=== PATIENT | male | born 1955 | race African-American/Black ===

== ENCOUNTER 2016-09-09 15:47 | Emergency (ER) | payer MEDICARE ==
[2016-09-09] MEDS ORDERED: PREDNISONE 20 MG TABLET PO ONE (17:48)
--- NOTE | 2016-09-09 18:28 | ER Document Report ---
ED Extremity Problem, Lower - General Chief Complaint: Knee Pain Stated Complaint: LEFT KNEE PAIN Time Seen by Provider: 09/09/16 17:27 Mode of Arrival: Ambulatory Information source: Patient Notes: 11-year-old male presents to ED for left knee pain. He states he has a history of gout in his knee. His knee is swollen. He took 2 ibuprofen 800 last night into this morning. States he has a history of some kidney problems. I informed him he should not be taking ibuprofen at all and especially not 2 800 mg tablets at a time. TRAVEL OUTSIDE OF THE [place] IN LAST 30 DAYS: No - HPI Location: Knee Occurred: Other - During this time a couple days ago Where: Home Onset/Duration: Gradual Quality of pain: Achy, Sharp, Throbbing Severity: Severe Pain Level: 5 Recent injury: No Associated symptoms: Painful ambulation Exacerbated by: Movement, Walking Relieved by: Nothing - Related Data Allergies/Adverse Reactions: No Known Allergies Allergy (Verified 04/01/16 13:17) Past Medical History - General Information source: Patient - Social History Smoking Status: Never Smoker Chew tobacco use (# tins/day): No Frequency of alcohol use: Social Drug Abuse: None Occupation: none Lives with: Spouse/Significant other Family History: Hypertension, Malignancy Patient has suicidal ideation: No Patient has homicidal ideation: No - Past Medical History Cardiac Medical History: Reports: Hx Hypertension Pulmonary Medical History: Reports: Hx Pneumonia EENT Medical History: Reports: None Neurological Medical History: Reports: Hx Cerebrovascular Accident - PT DENIES RESIDUAL WEAKNESS, STROKE IN 2006 Endocrine Medical History: Reports: None Renal/ Medical History: Reports: Other - He states he was told that he had some problems with his kidney and he needs to watch it. Malignancy Medical History: Reports None GI Medical History: Reports: Hx Gastroesophageal Reflux Disease Musculoskeltal Medical History: Reports Hx Arthritis, Reports Hx Gout Skin Medical History: Reports None Psychiatric Medical History: Reports: None Traumatic Medical History: Reports: None Infectious Medical History: Reports: None Surgical Hx: Negative Past Surgical History: Reports: None - Immunizations Immunizations up to date: Yes Hx Diphtheria, Pertussis, Tetanus Vaccination: Yes Review of Systems - Review of Systems Constitutional: No symptoms reported EENT: No symptoms reported Cardiovascular: No symptoms reported Respiratory: No symptoms reported Gastrointestinal: No symptoms reported Genitourinary: No symptoms reported Male Genitourinary: No symptoms reported Musculoskeletal: Joint pain - Left knee pain and swelling Skin: No symptoms reported Hematologic/Lymphatic: No symptoms reported Neurological/Psychological: No symptoms reported Physical Exam - Vital signs Vitals: Temp Pulse Resp BP Pulse Ox 98.0 F 55 L 20 151/83 H 96 09/09/16 16:03 09/09/16 16:03 09/09/16 16:03 09/09/16 16:03 09/09/16 16:03 Interpretation: Normal - General General appearance: Appears well, Alert - HEENT Head: Normocephalic, Atraumatic Eyes: Normal Pupils: PERRL - Respiratory Respiratory status: No respiratory distress Chest status: Nontender Breath sounds: Normal Chest palpation: Normal - Cardiovascular Rhythm: Regular Heart sounds: Normal auscultation Murmur: No - Abdominal Inspection: Normal Distension: No distension Bowel sounds: Normal Tenderness: Nontender Organomegaly: No organomegaly - Back Back: Normal, Nontender - Extremities General upper extremity: Normal inspection, Nontender, Normal color, Normal ROM , Normal temperature General lower extremity: Normal color, Normal temperature. No: Suyapa's sign Knee: Tender, Pain with ROM, Other - Arm swollen area just below the knee patient has a history of gout in this area - Neurological Neuro grossly intact: Yes Cognition: Normal Orientation: AAOx4 Rodney Coma Scale Eye Opening: Spontaneous Rodney Coma Scale Verbal: Oriented Rodney Coma Scale Motor: Obeys Commands Rodney Coma Scale Total: 15 Speech: Normal Motor strength normal: LUE, RUE, LLE, RLE Sensory: Normal - Psychological Associated symptoms: Normal affect, Normal mood - Skin Skin Temperature: Warm Skin Moisture: Dry Skin Color: Normal Course - Re-evaluation Re-evalutation: 09/09/16 19:17 Discussed x-ray with patient and girlfriend. Written report given to girlfriend. Patient was treated with prednisone and given a dispense pack of [place] for the pain. Patient discharged home with prescription for prednisone. Patient will be instructed again not to take ibuprofen if he has kidney problems. Girlfriend says that he does have kidney problems and is been told not to take the ibuprofen. She states that she does not know why the [facility] gave him ibupro[facility] again. - Vital Signs Vital signs: Temp Pulse Resp BP Pulse Ox 98.0 F 75 16 150/89 H 96 09/09/16 19:36 09/09/16 19:36 09/09/16 19:36 09/09/16 19:36 09/09/16 19:36 - Diagnostic Test Radiology reviewed: Image reviewed, Reports reviewed Discharge - Discharge Clinical Impression: Gout of left knee Qualifiers: Gout etiology: unspecified cause Chronicity: unspecified Qualified Code(s): M10.9 - Gout, unspecified Condition: Stable Disposition: HOME, SELF-CARE Additional Instructions: Gout You have been diagnosed as having gout. Gout is a problem caused by an excess of uric acid, a natural chemical found in the body. The cause of this disease is unknown. Gout arthritis occurs when crystals of uric acid form in the joints. The big toe is the most common joint involved, but any joint can become affected. Persons with gout may also form uric acid kidney stones, resulting in flank pain and blood in the urine. Nodules of uric acid may form under the skin. The first step of treatment is to decrease the inflammation in the joint with antiinflammatory medication. Medication to lower the uric acid level in the blood may then be prescribed. This medication should be taken regularly, as any sudden change in dosage may provoke an attack of gout. Some foods, such as red meat, can provoke an attack in some gout sufferers. Call the doctor if new symptoms arise, or if you do not improve. As we discussed if you are having any problems with your kidney you should not be taken ibuprofen. Even if you have no problems with your kidney you should never take more than 800 mg of ibuprofen at one time. He should never take more than 2400 mg of ibuprofen and a 24 hour period. If you take 600 mg you can take it every 6 hours if you take 800 mg you can take it every 8 hours. Please be sure to talk to your doctor before you take any more ibuprofen. STEROID MEDICATION: You have been given a medicine of the cortisone/steroid class. This medication is used to control inflammation or allergy. It is usually only given for a short period of time, until the acute process subsides. There are usually no side effects from short-term use of cortisone-like medications. Some persons feel an increased sense of well-being and are not sleepy at bedtime. Long-term use of cortisone medications is best avoided, unless required for a severe condition. If your condition does not remit, or relapses after the course of corticosteroid medication, you should consult your physician. Oral Narcotic Medication You have been given a prescription for pain control. This medication is a narcotic. It's best taken with food, as nausea can result if taken on an empty stomach. Don't operate machinery or drive within six hours of taking this medication. Do not combine this medicine with alcohol, or with any medication which can cause sedation (such as cold tablets or sleeping pills) unless you get permission from the physician. Narcotics tend to cause constipation. If possible, drink plenty of fluids and eat a diet high in fiber and fruits. FOLLOW-UP CARE: If you have been referred to a physician for follow-up care, call the physician s office for an appointment as you were instructed or within the next two days. If you experience worsening or a significant change in your symptoms, notify the physician immediately or return to the Emergency Department at any time for re-evaluation. Call your primary doctor in the morning and schedule a follow-up appointment within the next 3-5 days Prescriptions: Prednisone [Sterapred Ds] 1 pkg PO ASDIR PRN 12 Days PRN Reason: Forms: Elevated Blood Pressure
--- NOTE | 2016-09-09 18:32 | RADIOLOGY REPORT (SQ) ---
EXAM DESCRIPTION: KNEE LEFT 4 VIEW COMPLETED DATE/TIME: 09/09/2016 6:15 pm REASON FOR STUDY: pain and swelling COMPARISON: None. NUMBER OF VIEWS: Four views. TECHNIQUE: AP, lateral, and both oblique radiographic images acquired of the left knee. LIMITATIONS: None. FINDINGS: MINERALIZATION: Normal. BONES: No acute fracture or dislocation. No worrisome bone lesions. JOINT: There appears to be a small joint effusion. Joint spaces are fairly well maintained. SOFT TISSUES: No soft tissue swelling. No radio-opaque foreign body. OTHER: No other significant finding. IMPRESSION: Small joint effusion. If there is concern for internal derangement, consider MRI. TECHNICAL DOCUMENTATION: JOB ID: [id number] [email or web address]- All Rights Reserved
[2016-09-09] MEDS ORDERED: HYDROCODONE/ACETAMINOPHEN 5-325 MG 6 TAB/DSPK PO PRN (19:07)
[2016-09-09 19:36] VITALS: BP 150/89
== END 2016-09-09 19:37 | disposition home or self-care (01) ==
LOC: ER 15:47
DX: M10.9 Gout, unspecified (principal); M25.562 Pain in left knee; I10 Essential (primary) hypertension; Z86.73 Personal history of transient ischemic attack (TIA), and cerebral infarction without residual deficits; K21.9 Gastro-esophageal reflux disease without esophagitis
CPT/HCPCS: 99283; 73562; A9270 ×2; J7512

== ENCOUNTER 2017-01-27 11:18 | Emergency (ER) | payer MEDICARE, MEDICAID ==
--- NOTE | 2017-01-27 13:06 | RADIOLOGY REPORT (SQ) ---
EXAM DESCRIPTION: KNEE RIGHT 4 VIEWS COMPLETED DATE/TIME: 01/27/2017 12:35 pm REASON FOR STUDY: knee pain COMPARISON: None. NUMBER OF VIEWS: Four views. TECHNIQUE: AP, lateral, and both oblique radiographic images acquired of the right knee. LIMITATIONS: None. FINDINGS: MINERALIZATION: Normal. BONES: No acute fracture or dislocation. No worrisome bone lesions. JOINT: Tiny posterior patellar spurs are present. There is a small joint effusion. SOFT TISSUES: No soft tissue swelling. No radio-opaque foreign body. OTHER: No other significant finding. IMPRESSION: 1. Mild patellofemoral degenerative joint changes. 2. There is a small joint effusion. If there is concern for internal derangement, consider MRI. TECHNICAL DOCUMENTATION: JOB ID: [id number] [employer]- All Rights Reserved
[2017-01-27] MEDS ORDERED: PREDNISONE 20 MG TABLET PO ONE (13:29)
[2017-01-27] MEDS ORDERED: NAPROXEN 250 MG TABLET PO ONE (13:29)
--- NOTE | 2017-01-27 13:33 | ER Document Report ---
HPI - HPI Patient complains to provider of: right knee pain Pain Level: 4 Context: Patient is a 61-year-old male presents emergency department complaining of right knee pain for the past couple of days. Has been using a knee brace which is The swelling down. Otherwise denies any trauma. History of gout. Admits to history of hypertension and hyperlipidemia. Denies any history of diabetes, blood thinners - DERM Skin Color: Normal, [place] Past Medical History - Social History Smoking Status: Never Smoker Frequency of alcohol use: None Drug Abuse: None Family History: Hypertension, Malignancy Patient has suicidal ideation: No Patient has homicidal ideation: No - Past Medical History Cardiac Medical History: Reports: Hx Hypercholesterolemia, Hx Hypertension Pulmonary Medical History: Reports: Hx Pneumonia Neurological Medical History: Reports: Hx Cerebrovascular Accident - PT DENIES RESIDUAL WEAKNESS, STROKE IN 2006 Renal/ Medical History: Denies: Hx Peritoneal Dialysis GI Medical History: Reports: Hx Gastroesophageal Reflux Disease Musculoskeltal Medical History: Reports Hx Arthritis, Reports Hx Gout - Immunizations Immunizations up to date: Yes Hx Diphtheria, Pertussis, Tetanus Vaccination: Yes Vertical Provider Document - CONSTITUTIONAL Agree With Documented VS: Yes Exam Limitations: No Limitations General Appearance: WD/WN, No Apparent Distress Notes: PHYSICAL EXAM GENERAL: Alert, interacts well. EXTREMITIES: Joint effusion noted in the right knee otherwise nontender, moves all 4 extremities spontaneously. No edema, radial and dorsalis pedis pulses 2/4 bilaterally. No cyanosis. NEUROLOGICAL: Alert and oriented x4. Normal speech. PSYCH: Normal affect, normal mood. SKIN: Warm, dry, normal turgor. No rashes or lesions noted. - INFECTION CONTROL TRAVEL OUTSIDE OF THE [place] IN LAST 30 DAYS: No - RESPIRATORY O2 Sat by Pulse Oximetry: 96 Course - Re-evaluation Re-evalutation: 01/27/17 13:33 Patient is a 7-year-old male who is hemodynamic stable, no acute distress afebrile. X-ray shows evidence of degenerative disease of the right knee that is chronic. Small joint effusion. No evidence of acute trauma. Joint aspiration performed at the bedside and synovial fluid sent for analysis. Will treat patient for gout. Otherwise to follow-up with primary care. - Vital Signs Vital signs: Temp Pulse Resp BP Pulse Ox 97.7 F 54 L 21 H 136/83 H 96 01/27/17 11:20 01/27/17 11:20 01/27/17 11:20 01/27/17 11:20 01/27/17 11:20 Procedures - Joint Aspiration Right Knee Consent obtained: Yes Joint aspiration pre-procedure: Sterile PPE donned, Chloraprep applied Anesthetic type: 1% Lidocaine mL's of anesthetic: 2 Needle size: 18 Amount/type of drainage: 15cc yellow clear fluid Number of attempts: 2 Complications: No Discharge - Discharge Clinical Impression: Knee pain Condition: Good Disposition: HOME, SELF-CARE Instructions: Gout ([facility]), Gout Diet ([facility]) Prescriptions: Naproxen 500 mg PO BID 7 Days tablet Prednisone 5 mg PO ASDIR 6 Days tab.ds.pk Referrals: ILSA PARR DO [Primary Care Provider] - Follow up in 1 week
[2017-01-27 13:59] VITALS: BP 126/90
[2017-01-27 14:46] LABS: FLUID TYPE SYNOVIAL
[2017-01-27 14:50] LABS: FLUID APPEARANCE CLOUDY
[2017-01-27 14:51] LABS: FLUID RBC AVERAGE 113.5; FLUID RBC DILUENT USED SALINE; FLUID RBC DILUTION FACTOR 20; FLUID RBC SIDE 1 115; FLUID RBC SIDE 2 112; TOTAL RBC SQUARES COUNTED FLD 75
== END 2017-01-27 14:18 | disposition home or self-care (01) ==
LOC: ER 11:18
PROC: 0S9C3ZX Drainage of Right Knee Joint, Percutaneous Approach, Diagnostic (ICD-10-PCS; principal; 2017-01-27)
DX: M17.11 Unilateral primary osteoarthritis, right knee (principal); M25.561 Pain in right knee; M25.461 Effusion, right knee; I10 Essential (primary) hypertension
CPT/HCPCS: 99283; 89050; 89060; 73564; 10021; A9270 ×2; J7512

== ENCOUNTER 2017-05-29 11:54 | Emergency (ER) | payer MEDICARE, MEDICAID ==
[2017-05-29 12:18] VITALS: BP 116/74
--- NOTE | 2017-05-29 13:14 | RADIOLOGY REPORT (SQ) ---
EXAM DESCRIPTION: KNEE LEFT 4 VIEW COMPLETED DATE/TIME: 05/29/2017 1:00 pm REASON FOR STUDY: pain COMPARISON: None. NUMBER OF VIEWS: Four views. TECHNIQUE: AP, lateral, and both oblique radiographic images acquired of the left knee. LIMITATIONS: None. FINDINGS: MINERALIZATION: Normal. BONES: No acute fracture or dislocation. There is some prominence of the tibial tuberosity with bony sclerosis and cortical irregularity which could be related to previous trauma or old [place]-Schlatte r's disease. Clinical correlation is recommended JOINT: No effusion. SOFT TISSUES: No soft tissue swelling. No radio-opaque foreign body. OTHER: No other significant finding. IMPRESSION: No acute fracture or dislocation. Findings at the level of the tibial tuberosity which could be related to previous trauma or old Lizy-Schlatter's disease. Clinical correlation is recom mended. Other findings as noted above TECHNICAL DOCUMENTATION: JOB ID: [id number] [employer]- All Rights Reserved
--- NOTE | 2017-05-29 14:20 | ER Document Report ---
HPI - HPI Pain Level: 5 Notes: Patient is a 61-year-old male with a history of hypertension who presents to the ED complaining of left popliteal knee pain 3 days with no precipitating injury. Patient states that he has pain with trying to straighten his leg as well as with ambulation and weightbearing. Patient has tried using some ibuprofen with minimal relief. He is still eating and drinking without any difficulties. He has not had any significant past medical history to that left knee. He denies any prolonged immobilization, smoking, IV drug use, cancer, diabetes, previous DVT/PE, or being on any blood thinners. Denies any headache , fever, URI, sore throat, chest pain, palpitations, syncope, cough, shortness of breath, wheeze, dyspnea, abdominal pain, nausea/vomiting/diarrhea, urinary retention, dysuria, hematuria, loss of control of bowel or bladder, numbness/ tingling, saddle anesthesia, muscle paralysis/weakness, or rash. - ROS Systems Reviewed and Negative: Yes All other systems reviewed and negative Past Medical History - Social History Smoking Status: Never Smoker Family History: Hypertension, Malignancy - Past Medical History Cardiac Medical History: Reports: Hx Hypercholesterolemia, Hx Hypertension Pulmonary Medical History: Reports: Hx Pneumonia Neurological Medical History: Reports: Hx Cerebrovascular Accident - PT DENIES RESIDUAL WEAKNESS, STROKE IN 2006 Renal/ Medical History: Denies: Hx Peritoneal Dialysis GI Medical History: Reports: Hx Gastroesophageal Reflux Disease Musculoskeltal Medical History: Reports Hx Arthritis, Reports Hx Gout - Immunizations Immunizations up to date: Yes Hx Diphtheria, Pertussis, Tetanus Vaccination: Yes Vertical Provider Document - CONSTITUTIONAL Agree With Documented VS: Yes Notes: PHYSICAL EXAMINATION: GENERAL: Well-appearing, well-nourished and in no acute distress. LUNGS: Breath sounds clear to auscultation bilaterally and equal. No wheezes rales or rhonchi. HEART: Regular rate and rhythm without murmurs, rubs, gallops. ABDOMEN: Soft, nontender, nondistended abdomen. No guarding, no rebound. No masses appreciated. Normal bowel sounds present. No CVA tenderness bilaterally. No pulsatile mass Musculoskeletal: Lt LE: LROM to flexion to active. FROM to passive. Strength 5+/5. + tenderness to the posterior/popliteal knee. No obvious effusion, swelling, deformity, warmth, or erythema noted. Suyapa neg. Calf soft/non- tender. N/V intact distal. RLE: FROM to passive/active. Strength 5+/5. No focal deficits noted. No bony tenderness of extremities. Back: FROM to passive/active. Strength 5+/5. No vertebral point tenderness, stepoffs, or deformities. No other bony tenderness, erythema, swelling, or ecchymosis. SLR negative b/l. Extremities: Trace pitting edema b/l. Peripheral pulses 2+. Capillary refill less than 2 seconds. NEUROLOGICAL: Normal speech, limping gait. Normal sensory, motor exams. Reflexes 2+ b/l. PSYCH: Normal mood, normal affect. SKIN: Warm, Dry, normal turgor, no rashes or lesions noted. - INFECTION CONTROL TRAVEL OUTSIDE OF THE [place] IN LAST 30 DAYS: No - RESPIRATORY O2 Sat by Pulse Oximetry: 100 Course - Re-evaluation Re-evalutation: 05/29/17 14:19 Knee XR unremarkable for acute pathology (ordered prior to my evaluation) Pt has pain concerning for possible DVT as it is in the popliteal space. Venouse doppler ordered. 05/29/17 15:35 Patient is an afebrile, well-hydrated, 61-year-old male who presents the ED with left posterior knee pain, suspect inflammatory. Vitals are stable. PE is otherwise unremarkable for any neurovascular compress, obvious tendon/ligament rupture, obvious fracture/dislocation, septic joint, DVT. Preliminary report was negative for DVT or any cyst in that area. Crutches will be provided. I will send him home with a prescription for a steroid tapering dose. Recommend conservative measures for symptoms and to schedule an appointment with orthopedics for further evaluation and management. Recheck with your PCM in 3- 5 days as well. Return to the ED with any worsening/concerning symptoms otherwise as reviewed discharge. Patient is in agreement. - Vital Signs Vital signs: Temp Pulse Resp BP Pulse Ox 98.0 F 84 18 116/74 100 05/29/17 12:16 05/29/17 12:16 05/29/17 12:16 05/29/17 12:16 05/29/17 12:16 Discharge - Discharge Clinical Impression: Posterior left knee pain Condition: Stable Disposition: HOME, SELF-CARE Instructions: Use of Crutches ([facility]), Ice & Elevation ([facility]) Additional Instructions: Rest, Ice, Compression, Elevation Use crutches as directed Tylenol/ibuprofen as needed Light stretches daily Strength exercises as able Moist heat and massage may help F/u with your PCP in 3-5 days for a recheck Consider consult(s) with Orthopedics/physical therapy for ongoing/worsening symptoms Return to the ED with any worsening symptoms and/or development of fever, headache, chest pain, palpitations, syncope, shortness of breath, trouble breathing, abdominal pain, n/v/d, muscle weakness/paralysis, numbness/tingling, swelling, redness, or other worsening symptoms that are concerning to you. Prescriptions: RX: Prednisone [Deltasone 10 mg Tablet] 10 mg PO ASDIR PRN #21 tablet PRN Reason: Referrals: [facility] [Provider Group] - Follow up as needed
--- NOTE | 2017-05-30 16:09 | XCELERA REPORT ---
[address] [address] Lower Extremity Venous Evaluation Name: ADITHYA QUIGLEY Age: 61 yrs Gender: Male : 1955 Patient Status: Emergency Patient Location: ER Study Date: 05/29/2017 03:01 PM Procedure: Color flow and duplex imaging of the veins of the left lower extremity as well as the right Common Femoral vein. Reason For Study: left popliteal pain, no injury Ordering Physician: FLAKO CORCORAN PA-C Performed By: Daphne Ma Right Sided Venous Evaluation The right common femoral vein is fully compressible. Spontaneous and phasic flow is present in the right common femoral vein. Left Sided Venous Evaluation Normal vessel filling wall to wall, compression and augmentation as well as Colour flow down to the infrageniculate veins. Interpretation Summary No duplex evidence of DVT or obstruction in the left lower extremity nor in the right Common Femoral vein. : FLAKO CORCORAN PA-C > Dion Clinton
== END 2017-05-29 15:53 | disposition home or self-care (01) ==
LOC: ER 11:54
DX: M25.562 Pain in left knee (principal); I10 Essential (primary) hypertension; E78.00 Pure hypercholesterolemia, unspecified
CPT/HCPCS: 93971; 99284

== ENCOUNTER → 2017-08-01 | Outpatient (CLI) | payer MEDICARE, OTHER ==
--- NOTE | 2017-08-01 13:43 | EKG REPORT ---
SEVERITY:- ABNORMAL ECG - SINUS RHYTHM LVH WITH SECONDARY REPOLARIZATION ABNORMALITY PROLONGED QT INTERVAL : Confirmed by: Andrzej Gregory MD 01-Aug-2017 13:43:38
[2017-08-01 13:57] LABS: ABSOLUTE BASOPHILS # (AUTO) 0.1 10^3/uL (0.0-0.2); ABSOLUTE EOSINOPHILS # (AUTO) 0.1 10^3/uL (0.0-0.6); ABSOLUTE MONOCYTES (AUTO) 1.1 10^3/uL (0.1-1.4); ABSOLUTE NEUT (AUTO) 6.7 10^3/uL (1.7-8.2); BASOPHILS % (AUTO) 0.5 % (0-2); EOSINOPHILS % (AUTO) 1.3 % (0-6); HEMOGLOBIN 13.2 g/dL (13.5-17.0); LYMPHOCYTES % (AUTO) 27.4 % (13-45); MEAN CORPUSCULAR HEMOGLOBIN 28.8 pg (27.0-33.4); MEAN CORPUSCULAR HGB CONC 32.3 g/dL (32.0-36.0); MEAN CORPUSCULAR VOLUME 89 fl (80-97); PLATELET COUNT 298 10^3/uL (150-450); RED BLOOD COUNT 4.58 10^6/uL (4.35-5.55); RED CELL DISTRIBUTION WIDTH 14.2 % (11.5-14.0); SEGMENTED NEUTROPHILS % (AUTO) 60.8 % (42-78); TOTAL CELLS COUNTED % (AUTO) 100 %
[2017-08-01 14:02] LABS: APPEARANCE,URINE CLEAR; BILIRUBIN,URINE NEGATIVE (NEGATIVE); COLOR,URINE YELLOW; GLUCOSE, URINE NEGATIVE (NEGATIVE); KETONES,URINE NEGATIVE (NEGATIVE); LEUKOCYTE ESTERASE,URINE NEGATIVE (NEGATIVE); NITRITE,URINE NEGATIVE (NEGATIVE); PROTEIN,URINE NEGATIVE (NEGATIVE); URINE SPECIFIC GRAVITY 1.019
[2017-08-01 14:25] LABS: ANION GAP 13 (5-19); BLOOD UREA NITROGEN 23 mg/dL (7-20); CALCIUM 9.8 mg/dL (8.4-10.2); CARBON DIOXIDE 33 mmol/L (22-30); CHLORIDE 99 mmol/L (98-107); GLUCOSE 96 mg/dL (75-110); POTASSIUM 3.7 mmol/L (3.6-5.0); SODIUM 144.5 mmol/L (137-145)
== END ==
LOC: OD 13:01
PROVIDERS: ATTEND Orthopaedic Surgery
DX: Z01.818 Encounter for other preprocedural examination (principal); M17.12 Unilateral primary osteoarthritis, left knee
CPT/HCPCS: 36415; 80048; 81001; 85025; 93005; 93010

== ENCOUNTER 2017-08-06 07:10 | Day surgery (SDC) | payer OTHER, MEDICARE, MEDICAID ==
[~2017-08-06 07:10] MED LIST: CEFAZOLIN 2 GM/D5W RTU 2 GM/50 ML RTUPB IV PRN
[2017-08-06] MEDS ORDERED: BUPIVACAINE HCL 0.5 % INJ/PF 30 ML SDV ONE (07:32)
[2017-08-06] MEDS ORDERED: LIDOCAINE 1%/EPINEPHRINE INJ 20 ML VIAL ONE (07:33)
--- NOTE | 2017-08-06 07:34 | RADIOLOGY REPORT (SQ) ---
EXAM DESCRIPTION: CHEST SINGLE VIEW CLINICAL HISTORY: preop COMPARISON: 08/16/2013 FINDINGS: Single frontal view of the chest. The cardiomediastinal silhouette has normal size and contour. No consolidation, pneumothorax, or pleural effusion. No displaced rib fractures identified. Upper abdominal soft tissues are unremarkable. IMPRESSION: 1. No acute pulmonary process identified.
[2017-08-06] MEDS ORDERED: MIDAZOLAM 2 MG/2 ML INJ ONE (09:00)
[2017-08-06] MEDS ORDERED: FENTANYL CITRATE INJ/PF 100 MCG/2 ML AMPUL ONE ×2 (09:01→10:01)
[2017-08-06] MEDS ORDERED: PROPOFOL INJ 200 MG/20 ML VIAL IV ONE (09:01)
[2017-08-06] MEDS ORDERED: KETAMINE HCL INJ 500 MG/10 ML VIAL ONE (09:01)
[2017-08-06] MEDS ORDERED: FENTANYL CITRATE INJ/PF 100 MCG/2 ML AMPUL IV PRN ×3 (09:33)
[2017-08-06] MEDS ORDERED: OXYCODONE-ACETAMINOPHEN 5-325 MG TABLET PO PRN ×2 (09:33)
[2017-08-06] MEDS ORDERED: MEPERIDINE HCL/PF INJ 25 MG/1 ML DISP.SYRIN IV PRN (09:33)
[2017-08-06] MEDS ORDERED: DIPHENHYDRAMINE HCL 50 MG/ML VIAL IV PRN (09:33)
[2017-08-06] MEDS ORDERED: PROMETHAZINE HCL INJ 25 MG/1 ML VIAL IV PRN ×2 (09:33)
--- NOTE | 2017-08-06 09:44 | Operative Report ---
Operative Report DATE OF SURGERY: 08/06/17 PREOPERATIVE DIAGNOSIS: Left medial meniscal tear POSTOPERATIVE DIAGNOSIS: Left medial meniscal tear. Grade 2 chondral malacia medial compartment. Chondrocalcinosis medial compartment. Intact ACL. Lateral meniscal tear. Grade 1 chondral malacia lateral compartment. Chondrocalcinosis lateral compartment. Grade I chondromalacia the patellofemoral compartment OPERATION: Arthroscopic left partial medial and lateral meniscectomy SURGEON: FLAKO MAYO ANESTHESIA: LMAC ESTIMATED BLOOD LOSS: Minimal PROCEDURE: With the patient supine on the operative table left lower extremities prepped and draped in a sterile fashion. The knee is insufflated with a combination of Marcaine, Xylocaine, and epinephrine. Subsequent medial lateral infrapatellar portals are created for the introduction of arthroscope and debridement instrumentation. The joint is examined in a systematic fashion findings as above. Using combination of Viera, mechanical shaver, electric frequency ablation probe a partial medial meniscectomy was performed from approximately 8: 00 to 12:00 on the face of the dial. Similarly a partial lateral meniscectomy performed from proximal to 12:00 to 5:00 in the face of the dial. The joint is again examined in a systematic fashion with no new findings. Instrumentation was removed. Portals reapproximated interrupted nylon. Sterile compressive dressings applied. The patient was returned to PACU in satisfactory condition.
[2017-08-06] MEDS ORDERED: OXYCODONE HCL IR 5 MG TABLET PO PRN (10:48)
[2017-08-06] MEDS ORDERED: ONDANSETRON 4 MG TAB.RAPDIS SL PRN (10:48)
[2017-08-06 12:00] VITALS: BP 133/80
[2017-08-06] MEDS ORDERED: LIDOCAINE 2% INJ-PF (20 MG/ML) 2 ML AMPUL ONE (12:43)
== END 2017-08-06 11:35 | disposition home or self-care (01) ==
LOC: OROUT 07:10
PROVIDERS: ATTEND Orthopaedic Surgery
PROC: 0SBD4ZZ Excision of Left Knee Joint, Percutaneous Endoscopic Approach (ICD-10-PCS; 2017-08-06)
PROC: 0SBD4ZZ Excision of Left Knee Joint, Percutaneous Endoscopic Approach (ICD-10-PCS; principal; 2017-08-06 09:00)
DX: M23.201 Derangement of unspecified lateral meniscus due to old tear or injury, left knee (principal); M23.204 Derangement of unspecified medial meniscus due to old tear or injury, left knee; M67.80 Other specified disorders of synovium and tendon, unspecified site; M22.42 Chondromalacia patellae, left knee; M10.9 Gout, unspecified; I10 Essential (primary) hypertension; Z79.899 Other long term (current) drug therapy; Z86.73 Personal history of transient ischemic attack (TIA), and cerebral infarction without residual deficits
CPT/HCPCS: 36415; 84132; 71045; 29880; J2250; J3490 ×4; J3010; J2704; J0690; 1400

== ENCOUNTER 2017-08-13 10:17 | Emergency (ER) | payer MEDICARE, MEDICAID ==
[2017-08-13 10:25] VITALS: BP 108/71
[2017-08-13] MEDS ORDERED: KETOROLAC TROMETHAMINE INJ/PF 30 MG/1 ML SDV IM ONE (10:52)
--- NOTE | 2017-08-13 11:14 | ER Document Report ---
ED Extremity Problem, Lower - General Chief Complaint: Foot Pain Stated Complaint: RIGHT LEG PAIN Time Seen by Provider: 08/13/17 10:51 Mode of Arrival: Ambulatory Information source: Patient TRAVEL OUTSIDE OF THE [place] IN LAST 30 DAYS: No - HPI Patient complains to provider of: Pain Location: Foot Notes: Patient is here with complaints of right heel pain. He states that the pain is been present for the last few days. Week ago he had a scope done to his left knee he states he has been putting most of his weight on his right foot when he has been walking and thinks he may have strained his heel. He denies any traumatic injury. No fever. No redness. No numbness, tingling, weakness. States that his left knee feels great. No redness or swelling to the knee. No chest pain or shortness of breath. No abdominal pain. No nausea, vomiting, diarrhea. No other complaints at this time. Pain is worse with walking as well as with touching the heel. - Related Data Allergies/Adverse Reactions: No Known Allergies Allergy (Verified 08/13/17 10:20) Past Medical History - Social History Smoking Status: Never Smoker Chew tobacco use (# tins/day): No Frequency of alcohol use: None Drug Abuse: None Family History: Hypertension, Malignancy Patient has suicidal ideation: No Patient has homicidal ideation: No - Past Medical History Cardiac Medical History: Reports: Hx Hypercholesterolemia, Hx Hypertension Denies: Hx Coronary Artery Disease, Hx Heart Attack Pulmonary Medical History: Denies: Hx Asthma, Hx Bronchitis, Hx COPD, Hx Pneumonia Neurological Medical History: Denies: Hx Cerebrovascular Accident, Hx Seizures Renal/ Medical History: Denies: Hx Peritoneal Dialysis GI Medical History: Reports: Hx Gastroesophageal Reflux Disease Musculoskeltal Medical History: Reports Hx Arthritis - KOSTA ANKLES/KNEES, Reports Hx Gout Past Surgical History: Reports: Hx Orthopedic Surgery - L knee - Immunizations Immunizations up to date: Yes Hx Diphtheria, Pertussis, Tetanus Vaccination: Yes Review of Systems - Review of Systems -: Yes All other systems reviewed and negative Physical Exam - Vital signs Vitals: Temp Pulse Resp BP Pulse Ox 97.9 F 51 L 17 108/71 99 08/13/17 10:24 08/13/17 10:24 08/13/17 10:24 08/13/17 10:24 08/13/17 10:24 - Notes Notes: GENERAL: alert, cooperative, nontoxic, no distress. HEAD: normocephalic, atraumatic EYES: conjunctiva pink without discharge, no external redness or swelling. EARS: no external swelling, no external redness NOSE: atraumatic, no external swelling MOUTH/THROAT: mucous membranes moist and pink NECK: soft, supple, full range of motion, no meningismus. CHEST: no distress, lungs clear and equal throughout. No wheezing, rales, rhonchi. CARDIAC: regular rate and rhythm, no murmur, normal capillary refill, normal pulses. BACK: full range of motion, no CVA tenderness. EXTREMITIES: full range of motion of all extremities. No redness, no swelling. Tenderness to palpation of the posterior right calcaneus the insertion of the Achilles. No redness or swelling. Achilles is intact with a normal Esparza's test. Remainder the foot exam is unremarkable with no redness or tenderness. Normal pulse and sensation. No calf swelling or tenderness. Left knee exam shows sutures in place. No redness, no drainage. Full range of motion. No tenderness. NEURO: alert and oriented 3, no focal deficits, full range of motion of all extremities. PYSCH: appropriate mood, affect. Patient is cooperative. SKIN: pink, warm, dry, no rash. Course - Re-evaluation Re-evalutation: 08/13/17 12:15 The patient is nontoxic appearing with stable vitals. Is here with complaints of right heel pain. Tenderness right at the insertion of the Achilles tendon. Patient had surgery on his left knee about a week ago and states that he has been walking different on his right foot. His exam is consistent with Achilles tendinitis. There is no redness, swelling or fever and no signs of infection. X-ray shows no acute abnormalities. Patient would likely benefit from an anti- inflammatory medication. He tells me that he cannot take NSAIDs because they have been affecting his kidney function. I certainly do not want to place the patient on steroids since he recently had surgery as this could potentially delay his healing and put him at risk for infection. This point I recommended that he rest and ice the Achilles area. Follow-up with his orthopedist if his pain does not improve within the next week as it could potentially do a steroid injection in this area to give some pain relief without giving him systemic steroids. He was instructed to follow-up sooner if he develops worsening pain, fever, redness, numbness, tingling, weakness or any further concerns. Patient has pain medication that he was prescribed for his knee surgery that he can take as needed for pain. The patient's emergency department workup and current diagnosis were explained to the patient and or family. Follow-up instructions were provided. Medications if prescribed were discussed. Instructions for when to return to the emergency department including specific worrisome symptoms were discussed with the patient and/or family. - Vital Signs Vital signs: Temp Pulse Resp BP Pulse Ox 97.9 F 51 L 17 108/71 99 08/13/17 10:24 08/13/17 10:24 08/13/17 10:24 08/13/17 10:24 08/13/17 10:24 - Diagnostic Test Radiology reviewed: Image reviewed, Reports reviewed - Foot x-ray with no acute findings. Discharge - Discharge Clinical Impression: Achilles tendonitis Qualifiers: Laterality: right Qualified Code(s): M76.61 - Achilles tendinitis, right leg Condition: Stable Disposition: HOME, SELF-CARE Instructions: Tendonitis ([facility]) Additional Instructions: Rest and ice your foot. Follow-up with your orthopedist at next available appointment if your pain persists. Follow-up sooner for increasing pain, fever , redness, numbness, tingling, weakness, any further concerns. Forms: Smoking Cessation Education Referrals: ILSA PARR DO [Primary Care Provider] - Follow up as needed
--- NOTE | 2017-08-13 11:43 | RADIOLOGY REPORT (SQ) ---
EXAM DESCRIPTION: FOOT RIGHT COMPLETE COMPLETED DATE/TIME: 08/13/2017 11:29 am REASON FOR STUDY: heel pain COMPARISON: None. NUMBER OF VIEWS: Three views. TECHNIQUE: AP, lateral and oblique radiographic images acquired of the right foot. LIMITATIONS: None. FINDINGS: MINERALIZATION: Normal. BONES: No acute fracture or dislocation. No worrisome bone lesions. Small dorsal calcaneal spur. N o ossified plantar calcaneal spur is seen. JOINTS: Mild joint space narrowing at the 1st tarsometatarsal joint. SOFT TISSUES: No soft tissue swelling. No foreign body. Atherosclerotic arterial vascular calcifica tions are present OTHER: No other significant finding. IMPRESSION: No plain film findings to explain history of heel pain TECHNICAL DOCUMENTATION: JOB ID: [id number] [employer]- All Rights Reserved Reading location - IP/workstation name: [email or web address]
== END 2017-08-13 12:30 | disposition home or self-care (01) ==
LOC: ER 10:17
DX: M76.61 Achilles tendinitis, right leg (principal); M79.671 Pain in right foot; I10 Essential (primary) hypertension; Z98.890 Other specified postprocedural states
CPT/HCPCS: 99283; 96372; 73630; J1885

== ENCOUNTER 2017-10-20 12:47 | Emergency (ER) | payer MEDICAID, MEDICARE ==
[2017-10-20 12:54] VITALS: BP 140/73
[2017-10-20] MEDS ORDERED: OXYCODONE HCL IR 5 MG TABLET PO ONE (13:42)
[2017-10-20] MEDS ORDERED: KETOROLAC TROMETHAMINE INJ/PF 30 MG/1 ML SDV IM ONE (13:42)
--- NOTE | 2017-10-20 13:45 | ER Document Report ---
HPI - HPI Pain Level: 4 Notes: Patient is a 62-year-old male with a history of osteoarthritis who presents to the ED complaining of right knee pain 3 days, but has had knee pain over the last couple weeks. Patient states that he had a surgery a little while ago on his left knee and was favoring his right knee quite a bit. Patient states that he has trouble bearing weight because of the pain and with flexion. He has not noticed any swelling or redness. Patient states that the pain is on the medial side and does not radiate. He denies any drug allergies. Patient has not been in to see his specialist yet. Patient does have a history of hypertension. Denies any headache, fever, URI, sore throat, chest pain, palpitations, syncope , cough, shortness of breath, wheeze, dyspnea, abdominal pain, nausea/vomiting/ diarrhea, urinary retention, dysuria, hematuria, back pain, loss of control of bowel or bladder, numbness/tingling, saddle anesthesia, muscle paralysis/ weakness, or rash. - ROS Systems Reviewed and Negative: Yes All other systems reviewed and negative - REPRODUCTIVE Reproductive: DENIES: : - MUSCULOSKELETAL Musculoskeletal: REPORTS: Extremity pain - R knee Past Medical History - Social History Smoking Status: Unknown if Ever Smoked Family History: Hypertension, Malignancy Patient has suicidal ideation: No Patient has homicidal ideation: No - Past Medical History Cardiac Medical History: Reports: Hx Hypercholesterolemia, Hx Hypertension Denies: Hx Coronary Artery Disease, Hx Heart Attack Pulmonary Medical History: Denies: Hx Asthma, Hx Bronchitis, Hx COPD, Hx Pneumonia Neurological Medical History: Denies: Hx Cerebrovascular Accident, Hx Seizures Renal/ Medical History: Denies: Hx Peritoneal Dialysis GI Medical History: Reports: Hx Gastroesophageal Reflux Disease Musculoskeltal Medical History: Reports Hx Arthritis - KOSTA ANKLES/KNEES, Reports Hx Gout Past Surgical History: Reports: Hx Orthopedic Surgery - L knee - Immunizations Immunizations up to date: Yes Hx Diphtheria, Pertussis, Tetanus Vaccination: Yes Vertical Provider Document - CONSTITUTIONAL Agree With Documented VS: Yes Notes: PHYSICAL EXAMINATION: GENERAL: Well-appearing, well-nourished and in no acute distress. LUNGS: Breath sounds clear to auscultation bilaterally and equal. No wheezes rales or rhonchi. HEART: Regular rate and rhythm without murmurs, rubs, gallops. Musculoskeletal: Rt knee: No obvious swelling, ecchymosis, effusion, or deformity aside from seeing osteoarthritic changes. LOM to passive/active with flexion. Strength 5+/5. N/V intact distal. + tenderness to the medial joint line. Pt would not allow for adequate testing of the knee. No calf tenderness. Extremities: No cyanosis, clubbing, or edema b/l. Peripheral pulses 2+. Capillary refill less than 3 seconds. [place] neg b/l. NEUROLOGICAL: Normal speech, normal gait. Normal sensory, motor exams PSYCH: Normal mood, normal affect. SKIN: Warm, Dry, normal turgor, no rashes or lesions noted. - INFECTION CONTROL TRAVEL OUTSIDE OF THE [place] IN LAST 30 DAYS: No Course - Re-evaluation Re-evalutation: 10/20/17 15:03 Patient is an afebrile, well-hydrated, 62-year-old male who presents to the ED with right knee pain with a mild effusion present. Vitals are acceptable without significant tachycardia, tachypnea, or hypoxia. PE is otherwise unremarkable for any neurovascular compress, obvious tendon/ligament rupture, obvious fracture/dislocation, septic joint. See x-ray result. Patient is nontoxic-appearing and is tolerating p.o. without difficulties. No other labs or imaging warranted at this time based on H&P. Toradol given IM today. I will send him home with a steroid taper as well as Voltaren gel. Patient was requesting steroid as it worked well for his knee before. Recheck with your PCM in 3-5 days. Call and schedule an appoint with orthopedics. Return to the ED with any worsening/concerning symptoms otherwise as reviewed discharge. Patient is in agreement. - Vital Signs Vital signs: Temp Pulse Resp BP Pulse Ox 98.4 F 64 18 140/73 H 10/20/17 12:53 10/20/17 12:53 10/20/17 12:53 10/20/17 12:53 Discharge - Discharge Clinical Impression: Right knee pain Qualifiers: Chronicity: acute Qualified Code(s): M25.561 - Pain in right knee Condition: Stable Disposition: HOME, SELF-CARE Instructions: Ice & Elevation ([facility]) Additional Instructions: Rest, Ice, Compression, Elevation Use crutches as directed Tylenol/ibuprofen as needed Light stretches daily Strength exercises as able Moist heat and massage may help F/u with your PCP in 3-5 days for a recheck Call orthopedics to schedule an appointment for further evaluation and management Return to the ED with any worsening symptoms and/or development of fever, headache, chest pain, palpitations, syncope, shortness of breath, trouble breathing, abdominal pain, n/v/d, muscle weakness/paralysis, numbness/tingling, swelling, redness, or other worsening symptoms that are concerning to you. Prescriptions: Diclofenac Sodium [Voltaren] 4 gm TP QID PRN #100 gel..gm. PRN Reason: Prednisone 20 mg PO ASDIR #18 tablet Forms: Elevated Blood Pressure Referrals: ILSA PARR DO [Primary Care Provider] - Follow up in 3-5 days [facility] [Provider Group] - Follow up in 3-5 days
--- NOTE | 2017-10-20 15:00 | RADIOLOGY REPORT (SQ) ---
EXAM DESCRIPTION: KNEE RIGHT 4 VIEWS COMPLETED DATE/TIME: 10/20/2017 2:04 pm REASON FOR STUDY: rt knee pain COMPARISON: Right knee four views 01/27/2017 NUMBER OF VIEWS: Four views. TECHNIQUE: AP, lateral, and both oblique radiographic images acquired of the right knee. LIMITATIONS: None. FINDINGS: MINERALIZATION: Normal. BONES: No acute fracture or dislocation. Mild bony spurring at the quadriceps and patellar tendon at tachments to the patella, and along the anterior tibial tubercle. JOINT: Moderate suprapatellar knee joint effusion. SOFT TISSUES: No soft tissue swelling. No radio-opaque foreign body. OTHER: No other significant finding. IMPRESSION: Moderate suprapatellar knee joint effusion. No acute fracture or malalignment TECHNICAL DOCUMENTATION: JOB ID: [id number] [employer]- All Rights Reserved Reading location - IP/workstation name: [email or web address]
== END 2017-10-20 15:09 | disposition home or self-care (01) ==
LOC: ER 12:47
DX: M25.561 Pain in right knee (principal); M25.461 Effusion, right knee; I10 Essential (primary) hypertension; Z98.890 Other specified postprocedural states
CPT/HCPCS: 99283; 96372; 73564; J1885; A9270

== ENCOUNTER 2018-01-26 11:25 | Emergency (ER) | payer OTHER, MEDICARE ==
--- NOTE | 2018-01-26 11:36 | ER Document Report ---
ED Medical Screen (RME) - General Chief Complaint: Arm Problem Stated Complaint: ARM SWELLING Time Seen by Provider: 01/26/18 11:35 TRAVEL OUTSIDE OF THE [place] IN LAST 30 DAYS: No - HPI Notes: 01/26/18 11:35 Right arm swelling - Related Data Allergies/Adverse Reactions: No Known Allergies Allergy (Verified 08/13/17 10:20) Past Medical History - Social History Frequency of alcohol use: Occasional Drug Abuse: None - Past Medical History Cardiac Medical History: Reports: Hx Hypercholesterolemia, Hx Hypertension Denies: Hx Coronary Artery Disease, Hx Heart Attack Pulmonary Medical History: Denies: Hx Asthma, Hx Bronchitis, Hx COPD, Hx Pneumonia Neurological Medical History: Denies: Hx Cerebrovascular Accident, Hx Seizures Renal/ Medical History: Denies: Hx Peritoneal Dialysis GI Medical History: Reports: Hx Gastroesophageal Reflux Disease Musculoskeltal Medical History: Reports Hx Arthritis - KOSTA ANKLES/KNEES, Reports Hx Gout Past Surgical History: Reports: Hx Orthopedic Surgery - L knee - Immunizations Immunizations up to date: Yes Hx Diphtheria, Pertussis, Tetanus Vaccination: Yes History of Influenza Vaccine for 01/2017 - 06/2017 Season: Yes Influenza Administration Date for 01/2017 - 06/2017 Season: 02/19/17 Review of Systems - Review of Systems Musculoskeletal: Other - Arm swelling Physical Exam - Vital signs Vitals: Temp Pulse Resp BP Pulse Ox 98.0 F 64 18 153/104 H 98 01/26/18 11:29 01/26/18 11:29 01/26/18 11:29 01/26/18 11:29 01/26/18 11:29 - Respiratory Respiratory status: No respiratory distress Chest status: Nontender Breath sounds: Normal Chest palpation: Normal Course - Vital Signs Vital signs: Temp Pulse Resp BP Pulse Ox 98.0 F 64 18 153/104 H 98 01/26/18 11:29 01/26/18 11:29 01/26/18 11:29 01/26/18 11:29 01/26/18 11:29 Doctor's Discharge - Discharge Referrals: ILSA PARR DO [Primary Care Provider] - Follow up as needed
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
[2018-01-26] MEDS ORDERED: HYDROCODONE/ACETAMINOPHEN 5-325 MG TABLET PO ONE (11:59)
--- NOTE | 2018-01-26 12:40 | RADIOLOGY REPORT (SQ) ---
EXAM DESCRIPTION: FOREARM RIGHT COMPLETED DATE/TIME: 01/26/2018 12:21 pm REASON FOR STUDY: RIGHT WRIST AND ELBOW PAIN COMPARISON: None. NUMBER OF VIEWS: Two views. TECHNIQUE: Two radiographic images acquired of the right forearm, including elbow and wrist in at le ast one projection. LIMITATIONS: None. FINDINGS: MINERALIZATION: Normal. BONES: No acute fracture. No worrisome bone lesions. SOFT TISSUES: No obvious swelling or foreign body. OTHER: No other significant finding. IMPRESSION: NEGATIVE STUDY OF THE RIGHT FOREARM. NO RADIOGRAPHIC EVIDENCE OF ACUTE INJURY. TECHNICAL DOCUMENTATION: JOB ID: [id number] [employer] All Rights Reserved Reading location - IP/workstation name: [email or web address]
--- NOTE | 2018-01-26 12:45 | RADIOLOGY REPORT (SQ) ---
EXAM DESCRIPTION: SHOULDER RIGHT 2 OR MORE VIEWS COMPLETED DATE/TIME: 01/26/2018 12:21 pm REASON FOR STUDY: right shoulder pain COMPARISON: None. NUMBER OF VIEWS: Three views. TECHNIQUE: Internal rotation, external rotation, and Y view images acquired of the right shoulder. LIMITATIONS: None. FINDINGS: MINERALIZATION: Normal. BONES: No acute fracture or dislocation. No worrisome bone lesions. JOINTS: No dislocation. VISUALIZED LUNGS AND RIBS: No pneumothorax. No rib fracture. SOFT TISSUES: No radiopaque foreign body. OTHER: Moderate AC joint and glenohumeral joint arthropathy. IMPRESSION: NO RADIOGRAPHIC EVIDENCE OF ACUTE INJURY. TECHNICAL DOCUMENTATION: JOB ID: [id number] [employer]- All Rights Reserved Reading location - IP/workstation name: [email or web address]
[2018-01-26 13:35] LABS: ANION GAP 10 (5-19); BLOOD UREA NITROGEN 18 mg/dL (7-20); CARBON DIOXIDE 30 mmol/L (22-30); CHLORIDE 102 mmol/L (98-107); GLUCOSE 81 mg/dL (75-110); POTASSIUM 3.4 mmol/L (3.6-5.0); URIC ACID 9.3 mg/dL (3.5-8.5)
[2018-01-26] MEDS ORDERED: COLCHICINE 0.6 MG TABLET PO ONE (13:43)
[2018-01-26] MEDS ORDERED: HYDROCODONE/ACETAMINOPHEN 5-325 MG (6 TAB/ER DISP) PO PRN (13:50)
[2018-01-26 14:29] VITALS: BP 158/115
== END 2018-01-26 15:10 | disposition home or self-care (01) ==
LOC: ER 11:25
DX: M10.9 Gout, unspecified (principal); T50.906A Underdosing of unspecified drugs, medicaments and biological substances, initial encounter; Z91.128 Patient's intentional underdosing of medication regimen for other reason; Z91.14 Patient's other noncompliance with medication regimen; M19.011 Primary osteoarthritis, right shoulder; N28.9 Disorder of kidney and ureter, unspecified; M25.531 Pain in right wrist; M79.601 Pain in right arm; M25.519 Pain in unspecified shoulder; I10 Essential (primary) hypertension; Z87.891 Personal history of nicotine dependence; Z79.899 Other long term (current) drug therapy
CPT/HCPCS: 36415; 80048; 84550; 99283

== ENCOUNTER 2018-03-14 06:25 | Emergency (ER) | payer OTHER, MEDICARE ==
[2018-03-14 06:38] VITALS: BP 153/97
--- NOTE | 2018-03-14 07:36 | ER Document Report ---
HPI - HPI Time Seen by Provider: 03/14/18 07:11 Pain Level: 5 Notes: Patient is a 62-year-old male with a history of hypertension, CKD stage III, gout who presents to the ED complaining of another gout flareup to his right arm x1 week. Patient was here in January for the same pain. Patient states that he was treated for gout at that time which resolved the symptoms for "a while." Patient denies any injury. He has not had any recent illness. The pain does not radiate. Movements make his pain worse or light touch to the area. He is otherwise eating and drinking without any difficulties. He is urinating normally. Patient states that he has had gout flareups in other joints of his body that is the same pain as he is experiencing at this time. He has no significant pulmonary medical history. No other concerns or complaints. Denies any headache, fever, neck pain, changes in vision/speech/ mentation/hearing, URI, sore throat, chest pain, palpitations, syncope, cough, shortness of breath, wheeze, dyspnea, abdominal pain, nausea/vomiting/diarrhea, urinary retention, dysuria, hematuria, loss of control of bowel or bladder, numbness/tingling, muscle paralysis/weakness, or rash. - ROS Systems Reviewed and Negative: Yes All other systems reviewed and negative - REPRODUCTIVE Reproductive: DENIES: : Past Medical History - Social History Smoking Status: Unknown if Ever Smoked Family History: Hypertension, Malignancy - Past Medical History Cardiac Medical History: Reports: Hx Hypercholesterolemia, Hx Hypertension Denies: Hx Coronary Artery Disease, Hx Heart Attack Pulmonary Medical History: Denies: Hx Asthma, Hx Bronchitis, Hx COPD, Hx Pneumonia Neurological Medical History: Denies: Hx Cerebrovascular Accident, Hx Seizures Renal/ Medical History: Denies: Hx Peritoneal Dialysis GI Medical History: Reports: Hx Gastroesophageal Reflux Disease Musculoskeletal Medical History: Reports Hx Arthritis - KOSTA ANKLES/KNEES, Reports Hx Gout Past Surgical History: Reports: Hx Orthopedic Surgery - L knee - Immunizations Immunizations up to date: Yes Hx Diphtheria, Pertussis, Tetanus Vaccination: Yes Vertical Provider Document - CONSTITUTIONAL Agree With Documented VS: Yes Notes: PHYSICAL EXAMINATION: GENERAL: Well-appearing, well-nourished and in no acute distress. NECK: Normal range of motion, supple without lymphadenopathy. Non-tender. Spurling negative. No rigidity/meningismus. LUNGS: Breath sounds clear to auscultation bilaterally and equal. No wheezes rales or rhonchi. HEART: Regular rate and rhythm without murmurs, rubs, gallops. Musculoskeletal: Rt shoulder: FROM to passive. LROM to active due to pain. Strength 5+/5. Neg speed test. No crepitus. No erythema or warmth to the shoulder. No deformity or ecchymosis. RC intact 5+/5 strength. + tenderness to the lateral deltoid area and upper arm, correlates with pain described. FROM at the elbow. Extremities: No cyanosis, clubbing, or edema b/l. Peripheral pulses 2+. Capillary refill less than 3 seconds. NEUROLOGICAL: Normal speech, normal gait. Normal sensory, motor exams PSYCH: Normal mood, normal affect. SKIN: Warm, Dry, normal turgor, no rashes or lesions noted. - INFECTION CONTROL TRAVEL OUTSIDE OF THE [place] IN LAST 30 DAYS: No Course - Re-evaluation Re-evalutation: 03/14/18 07:37 Patient is an afebrile, well-hydrated, 62-year-old male who presents to the ED with right shoulder pain, suspect acute gout flareup. Vitals are acceptable without significant tachycardia, tachypnea, or hypoxia. PE is otherwise unremarkable for any neurovascular complaints, obvious tendon/leg rupture, obvious fracture/dislocation, septic joint. Patient was seen and evaluated for the same pain this past month. Patient expresses that this is gout and has not had any other injury. Patient is nontoxic-appearing and is tolerating p.o. without difficulty. He did have negative imaging at his last visit as well as an elevated uric acid level. No further labs or imaging warranted at this time. I will send him home with a prescription for a steroid taper. Conservative measures otherwise for symptoms. Recheck with your PCM in 3-5 days. Return to the ED with any worsening/concerning symptoms otherwise as reviewed discharge. Patient is in agreement. - Vital Signs Vital signs: Temp Pulse Resp BP Pulse Ox 98.9 F 68 18 153/97 H 94 03/14/18 06:37 03/14/18 06:37 03/14/18 06:37 03/14/18 06:37 03/14/18 06:37 Discharge - Discharge Clinical Impression: Right shoulder pain Qualifiers: Chronicity: acute Qualified Code(s): M25.511 - Pain in right shoulder Condition: Stable Disposition: HOME, SELF-CARE Instructions: Gout ([facility]), Gout Diet ([facility]) Additional Instructions: Rest, Ice, Compression, Elevation Tylenol/ibuprofen as needed Light stretches daily Strength exercises as able Moist heat and massage may help F/u with your PCP in 3-5 days for a recheck Consider consult(s) with Orthopedics/physical therapy for ongoing/worsening symptoms Return to the ED with any worsening symptoms and/or development of fever, headache, chest pain, palpitations, syncope, shortness of breath, trouble breathing, abdominal pain, n/v/d, muscle weakness/paralysis, numbness/tingling, swelling, redness, or other worsening symptoms that are concerning to you. Prescriptions: Prednisone [Deltasone 10 mg Tablet] 10 mg PO DAILY #18 tablet Forms: Elevated Blood Pressure Referrals: ILSA PARR DO [Primary Care Provider] - Follow up as needed [facility] [Provider Group] - Follow up as needed
[2018-03-14] MEDS ORDERED: OXYCODONE HCL IR 5 MG TABLET PO ONE (07:52)
== END 2018-03-14 08:13 | disposition home or self-care (01) ==
LOC: ER 06:25
DX: M25.511 Pain in right shoulder (principal); I10 Essential (primary) hypertension; Z87.39 Personal history of other diseases of the musculoskeletal system and connective tissue
CPT/HCPCS: 99283

== ENCOUNTER 2018-05-11 11:32 | Observation (INO) | payer OTHER, MEDICARE ==
[2018-05-11] MEDS ORDERED: ASPIRIN 81 MG TABLET, CHEWABLE PO ONE (11:59)
[2018-05-11 12:26] LABS: ABSOLUTE BASOPHILS # (AUTO) 0.1 10^3/uL (0.0-0.2); ABSOLUTE EOSINOPHILS # (AUTO) 0.1 10^3/uL (0.0-0.6); ABSOLUTE LYMPHOCYTES (AUTO) 2.3 10^3/uL (0.5-4.7); ABSOLUTE MONOCYTES (AUTO) 1.3 10^3/uL (0.1-1.4); ABSOLUTE NEUT (AUTO) 7.5 10^3/uL (1.7-8.2); BASOPHILS % (AUTO) 0.7 % (0-2); EOSINOPHILS % (AUTO) 0.6 % (0-6); HEMATOCRIT 42.6 % (37.9-51.0); LYMPHOCYTES % (AUTO) 20.5 % (13-45); MEAN CORPUSCULAR HEMOGLOBIN 29.4 pg (27.0-33.4); MEAN CORPUSCULAR HGB CONC 32.9 g/dL (32.0-36.0); MEAN CORPUSCULAR VOLUME 89 fl (80-97); MONOCYTES % (AUTO) 11.2 % (3-13); PLATELET COUNT 227 10^3/uL (150-450); RED BLOOD COUNT 4.77 10^6/uL (4.35-5.55); RED CELL DISTRIBUTION WIDTH 14.6 % (11.5-14.0); TOTAL CELLS COUNTED % (AUTO) 100 %; WHITE BLOOD COUNT 11.3 10^3/uL (4.0-10.5)
[2018-05-11 12:43] LABS: ALANINE AMINOTRANSFERASE 39 U/L (21-72); ALBUMIN 4.1 g/dL (3.5-5.0); ALKALINE PHOSPHATASE 81 U/L (38-126); ANION GAP 7 (5-19); ASPARTATE AMINO TRANSFERASE 30 U/L (17-59); BILIRUBIN,DIRECT 0.2 mg/dL (0.0-0.4); BILIRUBIN,TOTAL 0.8 mg/dL (0.2-1.3); BLOOD UREA NITROGEN 13 mg/dL (7-20); CALCIUM 9.4 mg/dL (8.4-10.2); CARBON DIOXIDE 31 mmol/L (22-30); CHLORIDE 105 mmol/L (98-107); CREATINE KINASE 177 U/L (55-170); GLUCOSE 98 mg/dL (75-110); POTASSIUM 3.8 mmol/L (3.6-5.0); SODIUM 143.1 mmol/L (137-145); TOTAL PROTEIN 7.2 g/dL (6.3-8.2)
[2018-05-11 12:55] LABS: CREATINE KINASE MB 2.14 ng/mL (<4.55); TROPONIN I < 0.012 ng/mL
--- NOTE | 2018-05-11 15:24 | RADIOLOGY REPORT (SQ) ---
EXAM DESCRIPTION: CHEST SINGLE VIEW COMPLETED DATE/TIME: 05/11/2018 2:54 pm REASON FOR STUDY: cp COMPARISON: 08/16/2013 EXAM PARAMETERS: NUMBER OF VIEWS: One view. TECHNIQUE: Single frontal radiographic view of the chest acquired. RADIATION DOSE: NA LIMITATIONS: None. FINDINGS: LUNGS AND PLEURA: No opacities, masses or pneumothorax. No pleural effusion. MEDIASTINUM AND HILAR STRUCTURES: No masses. Contour normal. HEART AND VASCULAR STRUCTURES: Cardiomegaly, may be related to patient positioning. No evidence for failure. BONES: No acute findings. HARDWARE: None in the chest. OTHER: No other significant finding. IMPRESSION: 1. No acute osseous findings. 2. Cardiomegaly may be related to patient positioning. No evidence for failure. TECHNICAL DOCUMENTATION: JOB ID: [id number] [employer]- All Rights Reserved Reading location - IP/workstation name: [email or web address]
--- NOTE | 2018-05-11 18:38 | EKG REPORT ---
SEVERITY:- ABNORMAL ECG - SINUS RHYTHM PROBABLE LEFT ATRIAL ABNORMALITY LVH WITH SECONDARY REPOLARIZATION ABNORMALITY BORDERLINE PROLONGED QT INTERVAL : Confirmed by: Salena Youngblood MD 11-May-2018 18:36:49
[2018-05-11 19:26] LABS: TROPONIN I 0.013 ng/mL
[2018-05-11] MEDS ORDERED: LISINOPRIL 10 MG TABLET PO ONE (20:04)
[2018-05-11] MEDS ORDERED: ENOXAPARIN SODIUM INJ 60 MG/0.6 ML DISP.SYRIN SUBCUT ONE (20:55)
[2018-05-11] MEDS ORDERED: HYDRALAZINE HCL INJ/PF 20 MG/1 ML SDV IV ONE (22:11)
[2018-05-11] MEDS ORDERED: FUROSEMIDE INJ/PF 40 MG/4 ML SDV IV SCH (23:45)
--- NOTE | 2018-05-11 23:45 | RADIOLOGY REPORT (SQ) ---
EXAM DESCRIPTION: CT ABDOMEN PELVIS WITH IV CONTRAST COMPLETED DATE/TME: 05/11/2018 00:00 CLINICAL HISTORY: 62 years, Male, RLQ pain, radiates to chest COMPARISON: Prior CT 04/01/2016 TECHNIQUE: 503 Images stored on PACS. All CT scanners at this facility use dose modulation, iterative reconstruction, and/or weight based dosing when appropriate to reduce radiation dose to as low as reasonably achievable (ALARA). [facility]: Dose Right [facility]: CareDose [facility]: Dose Right [facility]: Teradose 4D [facility]: [employer] LIMITATIONS: None. FINDINGS: Limited evaluation of the lung bases is unremarkable. Osseous structures are grossly intact. Fatty infiltrative change to the liver. Subcentimeter hypodensity in the left hepatic lobe, likely small cyst or hemangioma. The spleen, right adrenal gland are unremarkable. An approximately 1.3 x 1.3 cm left adrenal nodule. This is unchanged from the prior exam and may simply in part relate to asymmetric prominence of the left adrenal gland. Pancreas is unremarkable. Multiple bilateral renal cysts, as before. There is a vague hypodensity in the superior pole of the left kidney, which may reflect a somewhat complex cyst. However, this has increased in size from the prior exam. On today's study this measures 1.7 x 2.4 x 1.8 cm. On the prior exam, when measured by myself, this measured approximately 0.9 x 1.4 x 1.4 cm. The kidneys are otherwise unremarkable. The gallbladder is present. Normal appendix. Abundant stool in the colon. No free air or free fluid. Calcifications of the prostate. Correlate with PSA levels. IMPRESSION: Negative for acute intra-abdominal/pelvic process. Fatty infiltrative change to the liver. Stable subcentimeter hypodensity in the left hepatic lobe, likely small cyst or hemangioma. Stable nodularity/asymmetry of the left adrenal gland. Stable bilateral renal cysts. Interval slight increase in size of a vague hypodensity in the superior pole of the left kidney. Slow-growing neoplastic etiology should be considered. Urologic consultation recommended. This could also be further assessed nonemergently with dedicated MRI. TECHNICAL DOCUMENTATION: Quality ID # 436: Final reports with documentation of one or more dose reduction techniques (e.g., Automated exposure control, adjustment of the mA and/or kV according to patient size, use of iterative reconstruction technique) copyright 2011 [employer]- All Rights Reserved
[2018-05-11] MEDS ORDERED: HYDRALAZINE HCL INJ/PF 20 MG/1 ML SDV IV PRN (23:51)
[2018-05-11] MEDS ORDERED: LACTULOSE SYRUP 20 GM/30 ML UDCUP PO ONE (23:52)
--- NOTE | 2018-05-11 23:55 | ER Document Report ---
Entered by RENATO ALVARADO SCRIBE 05/11/18 1776 Acting as scribe for:KYRA APPIAH DO ED General - General Chief Complaint: Chest Pain Stated Complaint: CHEST PAINS Time Seen by Provider: 05/11/18 11:53 Mode of Arrival: Ambulatory Information source: Patient Notes: Patient is a 62 year old male with GERD, HTN, hyperlipidemia presents to the emergency department complaining of chest pain and shortness of breath. He states he has right upper quadrant pain that radiates into his chest. He states he has 3 pillow orthopnea and has never had similar symptoms before. He denies a history of CHF, COPD or a recent cough. He also expresses concern for a toothache onset last night. He states he has a follow up appointment with his dentist. Patient follows up with the PA. TRAVEL OUTSIDE OF THE [place] IN LAST 30 DAYS: No - Related Data Allergies/Adverse Reactions: No Known Allergies Allergy (Verified 05/11/18 11:33) Past Medical History - General Information source: Patient - Social History Smoking Status: Never Smoker Cigarette use (# per day): No Chew tobacco use (# tins/day): No Frequency of alcohol use: Occasional Drug Abuse: Marijuana Family History: Hypertension, Malignancy Patient has suicidal ideation: No Patient has homicidal ideation: No - Past Medical History Cardiac Medical History: Reports: Hx Hypercholesterolemia, Hx Hypertension GI Medical History: Reports: Hx Gastroesophageal Reflux Disease Musculoskeletal Medical History: Reports Hx Arthritis - KOSTA ANKLES/KNEES, Reports Hx Gout Past Surgical History: Reports: Hx Orthopedic Surgery - L knee - Immunizations Immunizations up to date: Yes Hx Diphtheria, Pertussis, Tetanus Vaccination: Yes Review of Systems - Review of Systems Constitutional: No symptoms reported EENT: No symptoms reported Cardiovascular: See HPI, Chest pain Respiratory: See HPI, Short of breath Gastrointestinal: See HPI, Abdominal pain Genitourinary: No symptoms reported Male Genitourinary: No symptoms reported Musculoskeletal: No symptoms reported Skin: No symptoms reported Hematologic/Lymphatic: No symptoms reported Neurological/Psychological: No symptoms reported -: Yes All other systems reviewed and negative Physical Exam - Vital signs Vitals: Pulse Ox 98 05/11/18 11:59 - Notes Notes: GENERAL: Alert, interacts well. No acute distress. HEAD: Normocephalic, atraumatic. EYES: Pupils equal, round, and reactive to light. Extraocular movements intact. ENT: Oral mucosa moist, tongue midline. Cracked right lower lateral incisor, no surrounding erythema or discharge. NECK: Full range of motion. Supple. Trachea midline. LUNGS: Clear to auscultation bilaterally, no wheezes, rales, or rhonchi. No respiratory distress. HEART: Regular rate and rhythm. No murmurs, gallops, or rubs. ABDOMEN: Soft diastases rectus, non-tender. Non-distended. Bowel sounds present in all 4 quadrants. EXTREMITIES: Moves all 4 extremities spontaneously. NEUROLOGICAL: Alert and oriented x3. Normal speech. PSYCH: Normal affect, normal mood. SKIN: Warm, dry, normal turgor. No rashes or lesions noted. Course - Re-evaluation Re-evalutation: 05/11/18 20:57 CBC shows mild anemia with hemoglobin 11 CMP shows elevated creatinine 1.42, initial troponin is undetectable, second troponin 0 0.013, proBNP elevated at 1490. Chest x-ray is unremarkable. 05/11/18 23:[address] Douglas who agreed to admit the patient based off of phone report, but when he interviewed the patient, the patient stated that he was having severe RLQ pain radiating to his chest. This is obviously concerning for possible appendicitis, so Dr Douglas requested that we get a CT a abdomen and pelvis to rule out appendicitis prior to admission. This was a reasonable plan so orally contrasted CT scan of the abdomen pelvis. Was negative for any acute process although it did show a slight interval increase in the size of the mass on his left kidney. Dr. Douglas was contacted regarding this and it was agreed to accept the patient to his service in observation status for chest pain rule out and will continue to follow-up on the mass as well. 05/11/18 23:54 During this time patient did also develop markedly elevated blood pressure and was treated with hydralazine IV. - Vital Signs Vital signs: Temp Pulse Resp BP Pulse Ox 22 H 172/94 H 94 05/11/18 19:01 05/11/18 19:01 05/11/18 19:01 - Laboratory Result Diagrams: 05/11/18 12:12 05/11/18 12:12 Laboratory results interpreted by me: 05/11/18 05/11/18 05/11/18 12:12 12:12 18:40 WBC 11.3 H RDW 14.6 H Carbon Dioxide 31 H Creatinine 1.42 H Est GFR (Non-Af Amer) 51 L Creatine Kinase 177 H NT-Pro-B Natriuret Pep 1490 H - EKG Interpretation by Me Additional EKG results interpreted by me: 05/11/18 20:57 EKG shows sinus rhythm at a rate of 60, left axis deviation, LVH with secondary repolarization abnormality, left atrial enlargement, T wave inversions in lead III, flattening in aVF, no ST segment elevations or depressions per my interpretation. Discharge - Discharge Clinical Impression: Chest pain, rule out acute myocardial infarction, Elevated brain natriuretic peptide (BNP) level Condition: Fair Disposition: ADMITTED OBSERVATION Admitting Provider: [facility] Admitted: Telemetry Scribe Attestation: 05/11/18 23:54 I personally performed the services described in the documentation, reviewed and edited the documentation which was dictated to the scribe in my presence, and it accurately records my words and actions. I personally performed the services described in the documentation, reviewed and edited the documentation which was dictated to the scribe in my presence, and it accurately records my words and actions.
[2018-05-11] MEDS ORDERED: NITROGLYCERIN 0.4 MG/TAB 25 TAB/BOTTLE SL PRN (23:56)
[2018-05-12] MEDS ORDERED: SIMVASTATIN 40 MG TABLET PO ONE (01:00)
[2018-05-12] MEDS ORDERED: POTASSIUM CHLORIDE 10 MEQ CAPSULE.ER PO ONE (01:00)
--- NOTE | 2018-05-12 06:14 | PDOC H&P ---
History of Present Illness Admission Date/PCP: 05/11/18 22:16 ILSA PARR DO Patient complains of: Right lower quadrant pain History of Present Illness: ADITHYA QUIGLEY is a 62 year old male with a past medical history of hypertension and right shoulder osteoarthritis presents with 24 hours of right lower quadrant pain which is dull in nature associated with shortness of breath when lying flat and radiates to the upper abdomen. He denies fever chills nausea vomiting diarrhea. Denies recent change of medications. In the emergency room is found to have uncontrolled hypertension with systolic pressure of 185, and elevated BNP, leukocytosis and a CT revealing constipation and an enlargement of a known left kidney mass measuring 1.5 x 2.4 x 1.8 cm. He has not had workup but also denies weight loss, dysuria or pain on the left side. Patient verifies in no way does he have chest pain, nausea vomiting, diaphoresis or palpitations. Past Medical History Cardiac Medical History: Reports: Hyperlipidema, Hypertension Denies: Coronary Artery Disease, Myocardial Infarction Pulmonary Medical History: Denies: Asthma, Bronchitis, Chronic Obstructive Pulmonary Disease (COPD), Pneumonia Neurological Medical History: Denies: Seizures Malignancy Medical History: Reports: Other - Left renal mass GI Medical History: Reports: Gastroesophageal Reflux Disease Musculoskeltal Medical History: Reports: Arthritis - KOSTA ANKLES/KNEES, Gout Psychiatric Medical History: Reports: None Hematology: Denies: Anemia Past Surgical History Past Surgical History: Reports: Orthopedic Surgery - L knee Social History Information Source: Patient, [facility] Records Smoking Status: Never Smoker Frequency of Alcohol Use: Occasional Hx Recreational Drug Use: Yes Drugs: Marijuana Hx Prescription Drug Abuse: No - Advance Directive Resuscitation Status: Full Code Family History Family History: Hypertension, Malignancy Parental Family History Reviewed: Yes Children Family History Reviewed: Yes Sibling(s) Family History Reviewed.: Yes Medication/Allergy Home Medications: Unobtainable 05/11/18 Allergies/Adverse Reactions: No Known Allergies Allergy (Verified 05/11/18 11:33) Review of Systems Constitutional: ABSENT: chills, fever(s), headache(s), weight gain, weight loss Eyes: ABSENT: visual disturbances Ears: ABSENT: hearing changes Cardiovascular: ABSENT: chest pain, dyspnea on exertion, edema, orthropnea, palpitations Respiratory: ABSENT: cough, hemoptysis Gastrointestinal: ABSENT: abdominal pain, constipation, diarrhea, hematemesis, hematochezia, nausea, vomiting Genitourinary: ABSENT: dysuria, hematuria Musculoskeletal: ABSENT: joint swelling Integumentary: ABSENT: rash, wounds Neurological: ABSENT: abnormal gait, abnormal speech, confusion, dizziness, focal weakness, syncope Psychiatric: ABSENT: anxiety, depression, homidical ideation, suicidal ideation Endocrine: ABSENT: cold intolerance, heat intolerance, polydipsia, polyuria Hematologic/Lymphatic: ABSENT: easy bleeding, easy bruising Physical Exam Vital Signs: Temp Pulse Resp BP Pulse Ox 14 186/136 H 95 05/12/18 00:34 05/12/18 00:34 05/12/18 00:34 Intake & Output 05/10/18 05/11/18 05/12/18 11:59 11:59 11:59 Weight 32 kg General appearance: PRESENT: no acute distress, cooperative, well-developed, well-nourished Head exam: PRESENT: atraumatic, normocephalic Eye exam: PRESENT: conjunctiva pink, EOMI, PERRLA. ABSENT: scleral icterus Ear exam: PRESENT: normal external ear exam Mouth exam: PRESENT: moist, tongue midline Neck exam: ABSENT: carotid bruit, JVD, lymphadenopathy, thyromegaly Respiratory exam: PRESENT: clear to auscultation kosta. ABSENT: rales, rhonchi, wheezes Cardiovascular exam: PRESENT: RRR. ABSENT: diastolic murmur, rubs, systolic murmur Pulses: PRESENT: normal dorsalis pedis pul Vascular exam: PRESENT: normal capillary refill GI/Abdominal exam: PRESENT: normal bowel sounds, soft, tenderness - Mild right lower quadrant tenderness. ABSENT: distended, guarding, hyperactive bowel sounds, hypoactive bowel sounds, mass, organolmegaly, rebound Rectal exam: PRESENT: deferred Extremities exam: PRESENT: full ROM, +1 edema. ABSENT: calf tenderness, clubbing, pedal edema Neurological exam: PRESENT: alert, awake, oriented to person, oriented to place, oriented to time, oriented to situation, CN II-XII grossly intact. ABSENT: motor sensory deficit Psychiatric exam: PRESENT: appropriate affect, normal mood. ABSENT: homicidal ideation, suicidal ideation Skin exam: PRESENT: dry, intact, warm. ABSENT: cyanosis, rash Results Laboratory Results: 05/11/18 12:12 05/11/18 12:12 05/11/18 05/11/18 12:12 12:12 WBC 11.3 H RBC 4.77 Hgb 14.0 Hct 42.6 MCV 89 MCH 29.4 MCHC 32.9 RDW 14.6 H Plt Count 227 Seg Neutrophils % 67.0 Lymphocytes % 20.5 Monocytes % 11.2 Eosinophils % 0.6 Basophils % 0.7 Absolute Neutrophils 7.5 Absolute Lymphocytes 2.3 Absolute Monocytes 1.3 Absolute Eosinophils 0.1 Absolute Basophils 0.1 Sodium 143.1 Potassium 3.8 Chloride 105 Carbon Dioxide 31 H Anion Gap 7 BUN 13 Creatinine 1.42 H Est GFR ( Amer) > 60 Est GFR (Non-Af Amer) 51 L Glucose 98 Calcium 9.4 Total Bilirubin 0.8 AST 30 ALT 39 Alkaline Phosphatase 81 Total Protein 7.2 Albumin 4.1 05/11/18 05/11/18 05/11/18 12:12 12:12 18:40 Creatine Kinase 177 H CK-MB (CK-2) 2.14 Troponin I < 0.012 0.013 NT-Pro-B Natriuret Pep 1490 H Impressions: Abdomen/Pelvis CT 05/11/18 00:00 IMPRESSION: Negative for acute intra-abdominal/pelvic process. Fatty infiltrative change to the liver. Stable subcentimeter hypodensity in the left hepatic lobe, likely small cyst or hemangioma. Stable nodularity/asymmetry of the left adrenal gland. Stable bilateral renal cysts. Interval slight increase in size of a vague hypodensity in the superior pole of the left kidney. Slow-growing neoplastic etiology should be considered. Urologic consultation recommended. This could also be further assessed nonemergently with dedicated MRI. TECHNICAL DOCUMENTATION: Quality ID # 436: Final reports with documentation of one or more dose reduction techniques (e.g., Automated exposure control, adjustment of the mA and/or kV according to patient size, use of iterative reconstruction technique) copyright 2011 [employer]- All Rights Reserved Chest X-Ray 05/11/18 11:59 IMPRESSION: 1. No acute osseous findings. 2. Cardiomegaly may be related to patient positioning. No evidence for failure. Assessment & Plan - Diagnosis (1) Atypical chest pain Is this a current diagnosis for this admission?: Yes Plan: Atypical chest pain though the patient's pain is atypical there are multiple risk factors for coronary artery disease and subsequently will observe and evalu ation of acute coronary syndrome versus coronary artery disease with anginal equivalents. Cardiac monitoring blood pressure Q6 hours ,TSH, lipid profile, serial cardiac enzymes and consideration of outpatient cardiac stress test if cardiac enzymes negative given high census. (2) Hypertensive urgency Is this a current diagnosis for this admission?: Yes Plan: Resume outpatient lisinopril, add Norvasc, Lasix and hydralazine as needed (3) Left renal mass Is this a current diagnosis for this admission?: Yes Plan: Urology consult. - Time Time Spent: 50 to 70 Minutes - Inpatient Certification Medical Necessity: Need Close Monitoring Due to Risk of Patient Decompensation
[2018-05-12 07:19] LABS: CREATINE KINASE MB 1.1 ng/mL (<4.55); TROPONIN I 0.017 ng/mL
[2018-05-12 07:20] LABS: ANION GAP 10 (5-19); BLOOD UREA NITROGEN 12 mg/dL (7-20); CALCIUM 9.4 mg/dL (8.4-10.2); CARBON DIOXIDE 28 mmol/L (22-30); CHLORIDE 103 mmol/L (98-107); CHOLESTEROL 133.31 mg/dL (0-200); CREATINE KINASE 135 U/L (55-170); GLUCOSE 104 mg/dL (75-110); POTASSIUM 3.6 mmol/L (3.6-5.0); SODIUM 141.3 mmol/L (137-145); TRIGLYCERIDES 84 mg/dL (<150)
[2018-05-12 07:34] LABS: DIRECT LDL 91 mg/dL (<100)
--- NOTE | 2018-05-12 09:22 | PDOC PROGRESS REPORT ---
Subjective Progress Note for:: 05/12/18 Subjective:: 05/12/2018 patient was admitted with nonspecific left-sided chest pain and also abdominal pain CT scan was done found to have a left kidney mass MRI with contrast is going to be done today. He is also scheduled for stress test this morning troponins are negative so far. No acute events since the admission. Patient is afebrile. Reason For Visit: HTN URGENCYM CHEST AND ABD PAIN Physical Exam Vital Signs: Temp Pulse Resp BP Pulse Ox 98.6 F 20 133/89 H 94 05/12/18 07:00 05/12/18 08:41 05/12/18 08:41 05/12/18 08:41 Intake & Output 05/11/18 05/12/18 05/13/18 06:59 06:59 06:59 Weight 32 kg General appearance: PRESENT: no acute distress Head exam: PRESENT: atraumatic Eye exam: PRESENT: PERRLA Mouth exam: PRESENT: moist Neck exam: ABSENT: carotid bruit, JVD, lymphadenopathy, thyromegaly Respiratory exam: PRESENT: clear to auscultation steven. ABSENT: rales, rhonchi, wheezes Cardiovascular exam: PRESENT: RRR. ABSENT: diastolic murmur, rubs, systolic mu rmur GI/Abdominal exam: PRESENT: normal bowel sounds, soft. ABSENT: distended, guarding, mass, organolmegaly, rebound, tenderness Extremities exam: PRESENT: full ROM. ABSENT: calf tenderness, clubbing, pedal edema Neurological exam: PRESENT: alert, awake, oriented to person, oriented to place, oriented to time, oriented to situation, CN II-XII grossly intact. ABSENT: motor sensory deficit Psychiatric exam: PRESENT: appropriate affect, normal mood. ABSENT: homicidal ideation, suicidal ideation Results Laboratory Results: 05/11/18 12:12 05/12/18 06:29 05/11/18 05/11/18 05/12/18 12:12 12:12 06:29 WBC 11.3 H RBC 4.77 Hgb 14.0 Hct 42.6 MCV 89 MCH 29.4 MCHC 32.9 RDW 14.6 H Plt Count 227 Seg Neutrophils % 67.0 Lymphocytes % 20.5 Monocytes % 11.2 Eosinophils % 0.6 Basophils % 0.7 Absolute Neutrophils 7.5 Absolute Lymphocytes 2.3 Absolute Monocytes 1.3 Absolute Eosinophils 0.1 Absolute Basophils 0.1 Sodium 143.1 141.3 Potassium 3.8 3.6 Chloride 105 103 Carbon Dioxide 31 H 28 Anion Gap 7 10 BUN 13 12 Creatinine 1.42 H 1.44 H Est GFR ( Amer) > 60 > 60 Est GFR (Non-Af Amer) 51 L 50 L Glucose 98 104 Calcium 9.4 9.4 Total Bilirubin 0.8 AST 30 ALT 39 Alkaline Phosphatase 81 Total Protein 7.2 Albumin 4.1 Triglycerides 84 Cholesterol 133.31 LDL Cholesterol Direct 91 VLDL Cholesterol 17.0 HDL Cholesterol 30 L 05/11/18 05/11/18 05/11/18 12:12 12:12 18:40 Creatine Kinase 177 H CK-MB (CK-2) 2.14 Troponin I < 0.012 0.013 NT-Pro-B Natriuret Pep 1490 H 05/12/18 05/12/18 06:29 06:29 Creatine Kinase 135 CK-MB (CK-2) 1.10 Troponin I 0.017 NT-Pro-B Natriuret Pep Impressions: Abdomen/Pelvis CT 05/11/18 00:00 IMPRESSION: Negative for acute intra-abdominal/pelvic process. Fatty infiltrative change to the liver. Stable subcentimeter hypodensity in the left hepatic lobe, likely small cyst or hemangioma. Stable nodularity/asymmetry of the left adrenal gland. Stable bilateral renal cysts. Interval slight increase in size of a vague hypodensity in the superior pole of the left kidney. Slow-growing neoplastic etiology should be considered. Urologic consultation recommended. This could also be further assessed nonemergently with dedicated MRI. TECHNICAL DOCUMENTATION: Quality ID # 436: Final reports with documentation of one or more dose reduction techniques (e.g., Automated exposure control, adjustment of the mA and/or kV according to patient size, use of iterative reconstruction technique) copyright 2011 [employer]- All Rights Reserved Chest X-Ray 05/11/18 11:59 IMPRESSION: 1. No acute osseous findings. 2. Cardiomegaly may be related to patient positioning. No evidence for failure. Assessment & Plan - Diagnosis (1) Atypical chest pain Is this a current diagnosis for this admission?: Yes Plan: Atypical chest pain though the patient's pain is atypical there are multiple risk factors for coronary artery disease and subsequently will observe and evaluation of acute coronary syndrome versus coronary artery disease with anginal equivalents. Cardiac monitoring blood pressure Q6 hours ,TSH, lipid profile, serial cardiac enzymes and consideration of outpatient cardiac stress test if cardiac enzymes negative given high census. 05/12/2018-no complaints of chest pain this morning the troponins trend is first 1 is 0.012-second 1 is 0.013 and third 1 is 0.017. Is negative. Patient is going for the stress test today. And patient was placed on aspirin, simvastatin, on Lovenox and lipid profile done. (2) Hypertensive urgency Is this a current diagnosis for this admission?: Yes Plan: 05/12/2018-patient came in with a systolic blood pressure of 185 in hypertensive emergency he was placed on lisinopril 40 mg p.o. daily amlodipine 10 mg p.o. daily he was also on hydralazine 10 mg IV as needed furosemide 40 mg IV daily blood pressure is much improved it is 142/94 today. Low-salt diet was advised. (3) Left renal mass Is this a current diagnosis for this admission?: Yes Plan: 05/12/2018-patient came in with abdominal pain found to have a left renal mass and MRI of the abdomen with contrast is going to be done today nephrology consult is going to be requested today. (4) Elevated brain natriuretic peptide (BNP) level Is this a current diagnosis for this admission?: Yes Plan: 05/10/2018-patient has elevated BNP 1490 patient denies any history of congestive heart failure. He is on Lasix 40 mg p.o. daily. I am going to recheck his BMP tomorrow. Hopefully the stress test will give some input about the cardiac function. - Time Time Spent with patient: 15-24 minutes Medications reviewed and adjusted accordingly: Yes Anticipated discharge: Home
[2018-05-12] MEDS ORDERED: LISINOPRIL 10 MG TABLET PO SCH (10:00)
[2018-05-12] MEDS: AMLODIPINE BESYLATE 10 MG TABLET PO SCH (10:16)
[2018-05-12] MEDS: POTASSIUM CHLORIDE 10 MEQ CAPSULE.ER PO SCH ×2 (10:16→21:55)
[2018-05-12] MEDS: FUROSEMIDE 40 MG TABLET PO SCH ×2 (10:17→17:17)
--- NOTE | 2018-05-12 12:13 | Physician Advisory Note ---
Physician Advisor ProgressNote .: Pursuant to the plan for Mauro Laar, I have reviewed the medical record for this patient. Physician Advisor Statement: Please consider documenting, if you agree: 1. "RLQ pain, suspect due to " 2. "possible [acute/chronic] ___ CHF" - (+)orthopnea/SOB, cardiomegaly on CXR & LVH on EKG, no previous ECHO, BNP 1490 .... 3. Please clarify the HTN dx - "HTN-jesse urgency", or "HTN-jesse emergency causing acute " [organ dysfunction s/s: Ac CHF? Ac CP/SOB? ... ] - both HTN dx.s are currently documented. Status: Approp'ly brought in as Obs for CP/HTN-jesse urgency. Street will be that he will get stress test & MRI & nephrol c/s today & be ready for d/c home this PM. - If this is not the case, please document the continued acute clinical issues/concerns, in which case it may become appropriate to consider Inpt status. Thanks! CK
[2018-05-12] MEDS ORDERED: REGADENOSON INJ 0.4 MG/5 ML DISP.SYRIN IV ONE (12:39)
[2018-05-12] MEDS ORDERED: COLCHICINE 0.6 MG TABLET PO PRN (15:16)
[2018-05-12] MEDS: CYCLOBENZAPRINE HCL 10 MG TABLET PO SCH (17:17)
--- NOTE | 2018-05-12 19:53 | XCELERA REPORT ---
[address] [address] Transthoracic Echocardiogram Report Name: ADITHYA QUIGLEY Age: 62 yrs Gender: Male : 1955 Patient Status: Inpatient Patient Location: [address] [place] [address] Study Date: 05/12/2018 04:06 PM Height: 71 in Weight: 220 lb BSA: 2.2 m2 Procedure: A two-dimensional transthoracic echocardiogram with color flow and Doppler was performed. Study Quality: Fair. Reason For Study: chf History: CHF. Ordering Physician: GUERDA SHEIKH Performed By: Lisette Vaughn Interpretation Summary The left ventricle is normal in size. There is normal left ventricular wall thickness. LV EF is 60% Left ventricular systolic function is normal. Doppler measurements suggest normal left ventricular diastolic function The left ventricular wall motion is normal. There is no thrombus. There is no ventricular septal defect visualized. The right ventricle is normal in size and function. The right atrium is normal. The left atrium is mildly dilated. The interatrial septum is intact with no evidence for an atrial septal defect. There is no Doppler evidence for an interatrial shunt There is no evidence of mitral valve prolapse. There is no vegetation seen on the mitral valve. There is no mitral valve stenosis. There is a trace amount of mitral regurgitation There is no aortic valvular vegetation. There is no aortic valve stenosis There is no LVOT obstruction. There is a trace amount of aortic regurgitation There is no tricuspid stenosis. There is a trace amount of tricuspid regurgitation Right ventricular systolic pressure is normal. rvsp IS 25 TO 30 MM F hG , WITH ra MEAN OF 5 TO 10. There is no pulmonic valvular stenosis. There is no pulmonic valvular regurgitation. The aortic root is normal size. The inferior vena cava appeared normal and decreased > 50% with respiration (RAP 5-10 mmHg) Trace pericardial effusion.No ech or doppler evidence of tamponade. MMode/2D Measurements & Calculations RVDd: 3.4 cm LVIDd: 5.8 cm FS: 27.9 % Ao root diam: 3.1 cm IVSd: 1.1 cm LVIDs: 4.2 cm EDV(Teich): 166.2 ml Ao root area: 7.8 cm2 LVPWd: 1.1 cm ESV(Teich): 77.5 ml LA dimension: 4.4 cm EF(Teich): 53.4 % Doppler Measurements & Calculations MV E max dustin: MV P1/2t max dustin: Ao V2 max: LV V1 max P.7 cm/sec 80.5 cm/sec 178.1 cm/sec 5.2 mmHg MV A max dustin: MV P1/2t: 74.2 msec Ao max PG: LV V1 max: 60.6 cm/sec MVA(P1/2t): 3.0 cm2 12.7 mmHg 114.3 cm/sec MV E/A: 1.3 MV dec slope: 318.0 cm/sec2 MV dec time: 0.26 sec PA V2 max: TR max dustin: MV P1/2t-pr_phl: 127.2 cm/sec 221.3 cm/sec 74.2 msec PA max P.5 mmHgTR max P.6 mmHg Left Ventricle The left ventricle is normal in size. There is normal left ventricular wall thickness. LV EF is 60%. Left ventricular systolic function is normal. Doppler measurements suggest normal left ventricular diastolic function. The left ventricular wall motion is normal. There is no thrombus. There is no ventricular septal defect visualized. Right Ventricle The right ventricle is normal in size and function. Atria The right atrium is normal. The left atrium is mildly dilated. The interatrial septum is intact with no evidence for an atrial septal defect. There is no Doppler evidence for an interatrial shunt. Mitral Valve There is no evidence of mitral valve prolapse. There is no vegetation seen on the mitral valve. There is no mitral valve stenosis. There is a trace amount of mitral regurgitation. Aortic Valve There is no aortic valvular vegetation. There is no aortic valve stenosis. There is no LVOT obstruction. There is a trace amount of aortic regurgitation. Tricuspid Valve There is no tricuspid stenosis. There is a trace amount of tricuspid regurgitation. Right ventricular systolic pressure is normal. rvsp IS 25 TO 30 MM F hG , WITH ra MEAN OF 5 TO 10. Pulmonic Valve There is no pulmonic valvular stenosis. There is no pulmonic valvular regurgitation. Great Vessels The aortic root is normal size. The inferior vena cava appeared normal and decreased > 50% with respiration (RAP 5-10 mmHg). Effusions Trace pericardial effusion.No ech or doppler evidence of tamponade. : GUERDA SHEIKH > Salena Youngblood
--- NOTE | 2018-05-12 20:15 | RADIOLOGY REPORT (SQ) ---
EXAM DESCRIPTION: MR ABDOMEN WITHOUT THEN WITH IV CONTRAST COMPLETED DATE/TME: 05/12/2018 00:00 CLINICAL HISTORY: 62 years, Male, kidney mass COMPARISON: CT 05/11/2018 TECHNIQUE: 1392 Images stored on PACS. LIMITATIONS: None. FINDINGS: Limited evaluation of the lung bases is unremarkable. There is a moderate degree of respiratory motion artifact. Simple appearing subcentimeter cyst within the left hepatic lobe. The liver is otherwise unremarkable. The gallbladder, spleen, adrenal glands are unremarkable. Atrophic appearance to the pancreas. There is a subtle approximately 5 x 5 mm cyst associated with the pancreatic tail. This does not enhance. The pancreas is otherwise unremarkable. There are multiple simple, nonenhancing renal cysts bilaterally. However, as described on prior CT there is an indeterminate lesion in the superior, medial pole of the left kidney measuring 2.0 x 2.0 x 1.9 cm. This does not show diffuse fluid signal characteristics. In addition, this does demonstrate mild heterogeneous enhancement on postcontrast sequences. Therefore, renal cell carcinoma is not excluded. There is no surrounding adenopathy. No free fluid in the abdomen. IMPRESSION: Indeterminate lesion in the superior medial pole of the left kidney for which renal cell carcinoma cannot be excluded. Urologic consult is recommended. Multiple simple cysts are also noted within the kidneys bilaterally. There is a subcentimeter, simple cyst associated with the pancreatic tail as well as within the left hepatic lobe. copyright 2010 [employer]- All Rights Reserved
--- NOTE | 2018-05-12 20:33 | DRAGON STRESS TEST REPORT ---
Intravenous Lexiscan Cardiolite stress test using single photon emmision computerized tomography. Date of procedure: 05/12/2018. Ordering Provider: Dr. Marcano. Patient's status: In Patient. Indication: Chest pain. Coronary risk factors: Age, hypertension, and dyslipidemia. Resting EKG: Sinus Rhythm. Nonspecific ST-T changes inferior leads. Stress EKG[ No changes of ischemia. The patient had no chest pain or discomfort, and there were no arrhythmias seen. Reason for termination: Protocol. Conclusions: Normal EKG and hemodynamic response to IV Lexiscan. Nuclear data: At rest the patient was given 10.62 millicuries of technetium 99m sestamibi injected intravenously. As per protocol rest non gated SPECT images were obtained. Subsequently the patient was given intravenous Lexiscan at a dose of 0.4 mg in 5 mL intravenously, followed by flush with normal saline. Subsequently the stress dose of 44.8 millicuries of technetium 99m sestamibi was injected intravenously. As per protocol stress gated images were obtained. Nuclear interpretation: Review of images showed that all segments of the myocardium had normal perfusion at rest, and normal perfusion post stress with IV Lexiscan. All segments of the myocardium had normal motion, contraction, and thickening by gated study. T. I D. ratio was normal a 1.05 t . There is no transient ischemic dilatation of the left ventricle. Computer read rest, and stress left ventricular ejection fraction were 37 %, and 34 %, respectively. Visually both the stress and rest ejection fractions were normal, and greater than 55%. Conclusion: 1. There is no scintigraphic evidence of Lexiscan induced myocardial ischemia. 2. There is no scintigraphic evidence of myocardial infarction/scar. Recommendations: 1. Check echo for LV ejection fraction correlation. 2.Aggressive risk factor modification, and treating the underlying co- morbidities. [facility]
[2018-05-12] MEDS ORDERED: CYCLOBENZAPRINE HCL 10 MG TABLET PO SCH (22:00)
[2018-05-12] MEDS ORDERED: SIMVASTATIN 40 MG TABLET PO SCH (22:00)
[2018-05-12] MEDS ORDERED: ZOLPIDEM TARTRATE 5 MG TABLET PO SCH (22:00)
[2018-05-13] MEDS ORDERED: IBUPROFEN 800 MG TABLET PO PRN (03:12)
[2018-05-13 05:31] LABS: ABSOLUTE BASOPHILS # (AUTO) 0.1 10^3/uL (0.0-0.2); ABSOLUTE EOSINOPHILS # (AUTO) 0.1 10^3/uL (0.0-0.6); ABSOLUTE LYMPHOCYTES (AUTO) 2.6 10^3/uL (0.5-4.7); ABSOLUTE MONOCYTES (AUTO) 1.5 10^3/uL (0.1-1.4); ABSOLUTE NEUT (AUTO) 12.1 10^3/uL (1.7-8.2); BASOPHILS % (AUTO) 0.4 % (0-2); EOSINOPHILS % (AUTO) 0.4 % (0-6); HEMATOCRIT 41.5 % (37.9-51.0); HEMOGLOBIN 13.7 g/dL (13.5-17.0); MEAN CORPUSCULAR VOLUME 88 fl (80-97); MONOCYTES % (AUTO) 9.1 % (3-13); PLATELET COUNT 229 10^3/uL (150-450); RED BLOOD COUNT 4.72 10^6/uL (4.35-5.55); RED CELL DISTRIBUTION WIDTH 14.7 % (11.5-14.0); SEGMENTED NEUTROPHILS % (AUTO) 74.1 % (42-78); TOTAL CELLS COUNTED % (AUTO) 100 %; WHITE BLOOD COUNT 16.4 10^3/uL (4.0-10.5)
[2018-05-13] MEDS: CYCLOBENZAPRINE HCL 10 MG TABLET PO SCH (05:34)
[2018-05-13 06:00] LABS: ALANINE AMINOTRANSFERASE 30 U/L (21-72); ALBUMIN 3.6 g/dL (3.5-5.0); ALKALINE PHOSPHATASE 78 U/L (38-126); ANION GAP 10 (5-19); ASPARTATE AMINO TRANSFERASE 23 U/L (17-59); BILIRUBIN,DIRECT 0.3 mg/dL (0.0-0.4); BILIRUBIN,TOTAL 1.1 mg/dL (0.2-1.3); BLOOD UREA NITROGEN 16 mg/dL (7-20); CARBON DIOXIDE 28 mmol/L (22-30); CHLORIDE 103 mmol/L (98-107); GLUCOSE 103 mg/dL (75-110); POTASSIUM 3.6 mmol/L (3.6-5.0); SODIUM 141.2 mmol/L (137-145); TOTAL PROTEIN 6.4 g/dL (6.3-8.2)
[2018-05-13] MEDS: FUROSEMIDE 40 MG TABLET PO SCH (09:07)
[2018-05-13] MEDS: AMLODIPINE BESYLATE 10 MG TABLET PO SCH (09:07)
[2018-05-13] MEDS: POTASSIUM CHLORIDE 10 MEQ CAPSULE.ER PO SCH (09:07)
[2018-05-13] MEDS ORDERED: POTASSIUM CHLORIDE 10 MEQ CAPSULE.ER PO SCH (10:00)
[2018-05-13] MEDS ORDERED: LISINOPRIL 10 MG TABLET PO SCH (10:00)
[2018-05-13] MEDS ORDERED: ALLOPURINOL 100 MG TABLET PO SCH (10:00)
[2018-05-13] MEDS ORDERED: (PENDING PHARMACY ID) (Lisinopril [Prinivil 40 Mg Tablet] 20 MG) PO SCH (10:00)
[2018-05-13] MEDS ORDERED: CYCLOBENZAPRINE HCL 10 MG TABLET PO SCH (16:30)
[2018-05-13 16:33] VITALS: BP 137/93
--- NOTE | 2018-05-13 16:56 | PDOC DISCHARGE SUMMARY ---
General - Admit/Disc Date/PCP Admission Date/Primary Care Provider: 05/11/18 22:16 ILSA PARR, Discharge Date: 05/13/18 - Discharge Diagnosis (1) Atypical chest pain Is this a current diagnosis for this admission?: Yes Summary: 05/13/2018-patient came in with chest pains to the ER. Troponins are negative, EKGs are negative stress test was negative. (2) Hypertensive urgency Is this a current diagnosis for this admission?: Yes Summary: 05/13/2018-patient came in with systolic blood pressure of 185 hypertensive urgency was resolved today's blood pressure is 122/76. Patient was started on amlodipine 910 mg daily, Lasix 40 mg p.o. twice daily. I am going to write the prescriptions for the patient. Patient was also started on lisinopril 20 mg daily. (3) Left renal mass Is this a current diagnosis for this admission?: Yes Summary: 05/13/2018 patient came into the emergency room with abdominal pain CT abdominal pelvis suggestive of left renal mass MRI of the abdomen was done which indicates there is a possibility of renal cell carcinoma patient was strongly advised to follow-up with urologist as an outpatient. He said he is going to find a primary care physician from the PCP patient said he is going to get a referral to see a urologist. (4) Elevated brain natriuretic peptide (BNP) level Is this a current diagnosis for this admission?: Yes Summary: 05/13/2018 BNP was 1490. He was started on Lasix 40 mg twice a day. Echocardiogram indicates ejection fraction of 37%. Looks like he has a systolic heart failure. Probably has a chronic congestive heart failure. - Additional Information Resuscitation Status: Full Code Discharge Diet: Cardiac Discharge Activity: Activity As Tolerated, Balance Activity w/Rest Home Medications: Allopurinol [Zyloprim 100 mg Tablet] 100 mg PO DAILY 05/12/18 Colchicine [Colcrys 0.6 mg Tablet] 0.6 mg PO BIDP PRN 05/12/18 Lisinopril [Prinivil 40 mg Tablet] 20 mg PO DAILY 05/12/18 Nifedipine [Procardia 10 mg Capsule] 10 mg PO DAILY 05/12/18 Omeprazole 40 mg PO DAILY 05/12/18 Amlodipine Besylate [Norvasc 10 mg Tablet] 10 mg PO DAILY tablet 05/13/18 Furosemide [Lasix 40 mg Tablet] 40 mg PO BID tablet 05/13/18 Potassium Chloride [Klor-Con 10 Meq Capsule ER] 20 meq PO Q12 capsule.er 05/13/18 Simvastatin [Zocor 40 mg Tablet] 80 mg PO QHS tablet 05/13/18 History of Present Illness History of Present Illness: ADITHYA QUIGLEY is a 62 year old male with a past medical history of hypertension and right shoulder osteoarthritis presents with 24 hours of right lower quadrant pain which is dull in nature associated with shortness of breath when lying flat and radiates to the upper abdomen. He denies fever chills nausea vomiting diarrhea. Denies recent change of medications. In the emergency room is found to have uncontrolled hypertension with systolic pressure of 185, and elevated BNP, leukocytosis and a CT revealing constipation and an enlargement of a known left kidney mass measuring 1.5 x 2.4 x 1.8 cm. He has not had workup but also denies weight loss, dysuria or pain on the left side. Patient verifies in no way does he have chest pain, nausea vomiting, diaphoresis or palpitations. Past Medical History Physical Exam Vital Signs: Temp Pulse Resp BP Pulse Ox 98.5 F 58 L 16 137/93 H 94 05/13/18 16:30 05/13/18 16:30 05/13/18 16:30 05/13/18 16:30 05/13/18 16:30 Intake & Output 05/12/18 05/13/18 05/14/18 06:59 06:59 06:59 Intake Total 437 Balance 437 Weight 32 kg 99.9 kg General appearance: PRESENT: no acute distress Head exam: PRESENT: atraumatic Eye exam: PRESENT: PERRLA Mouth exam: PRESENT: dry mucosa Neck exam: ABSENT: carotid bruit, JVD, lymphadenopathy, thyromegaly Respiratory exam: PRESENT: decreased breath sounds Cardiovascular exam: PRESENT: RRR. ABSENT: diastolic murmur, rubs, systolic murmur GI/Abdominal exam: PRESENT: normal bowel sounds, soft. ABSENT: distended, guarding, mass, organolmegaly, rebound, tenderness Extremities exam: PRESENT: full ROM. ABSENT: calf tenderness, clubbing, pedal edema Neurological exam: PRESENT: alert, awake, oriented to person, oriented to place, oriented to time, oriented to situation, CN II-XII grossly intact. ABSENT: motor sensory deficit Psychiatric exam: PRESENT: appropriate affect, normal mood. ABSENT: homicidal ideation, suicidal ideation Results Laboratory Results: 05/13/18 04:31 05/13/18 04:31 05/12/18 05/13/18 05/13/18 09:26 04:31 04:31 WBC 16.4 H RBC 4.72 Hgb 13.7 Hct 41.5 MCV 88 MCH 29.0 MCHC 33.0 RDW 14.7 H Plt Count 229 Seg Neutrophils % 74.1 Lymphocytes % 16.0 Monocytes % 9.1 Eosinophils % 0.4 Basophils % 0.4 Absolute Neutrophils 12.1 H Absolute Lymphocytes 2.6 Absolute Monocytes 1.5 H Absolute Eosinophils 0.1 Absolute Basophils 0.1 Sodium 141.2 Potassium 3.6 Chloride 103 Carbon Dioxide 28 Anion Gap 10 BUN 16 Creatinine 1.44 H Est GFR ( Amer) > 60 Est GFR (Non-Af Amer) 50 L Glucose 103 Calcium 9.0 Magnesium 1.8 Erythropoietin 24.1 H Total Bilirubin 1.1 AST 23 ALT 30 Alkaline Phosphatase 78 Total Protein 6.4 Albumin 3.6 05/11/18 05/11/18 05/11/18 12:12 12:12 18:40 Creatine Kinase 177 H CK-MB (CK-2) 2.14 Troponin I < 0.012 0.013 NT-Pro-B Natriuret Pep 1490 H 05/12/18 05/12/18 05/12/18 06:29 06:29 15:05 Creatine Kinase 135 CK-MB (CK-2) 1.10 Troponin I 0.017 < 0.012 NT-Pro-B Natriuret Pep 05/13/18 04:31 Creatine Kinase CK-MB (CK-2) Troponin I NT-Pro-B Natriuret Pep 189 Impressions: Abdomen/Pelvis CT 05/11/18 00:00 IMPRESSION: Negative for acute intra-abdominal/pelvic process. Fatty infiltrative change to the liver. Stable subcentimeter hypodensity in the left hepatic lobe, likely small cyst or hemangioma. Stable nodularity/asymmetry of the left adrenal gland. Stable bilateral renal cysts. Interval slight increase in size of a vague hypodensity in the superior pole of the left kidney. Slow-growing neoplastic etiology should be considered. Urologic consultation recommended. This could also be further assessed nonemergently with dedicated MRI. TECHNICAL DOCUMENTATION: Quality ID # 436: Final reports with documentation of one or more dose reduction techniques (e.g., Automated exposure control, adjustment of the mA and/or kV according to patient size, use of iterative reconstruction technique) copyright 2010 [employer]- All Rights Reserved Chest X-Ray 05/11/18 11:59 IMPRESSION: 1. No acute osseous findings. 2. Cardiomegaly may be related to patient positioning. No evidence for failure. Abdomen MRI 05/12/18 00:00 IMPRESSION: Indeterminate lesion in the superior medial pole of the left kidney for which renal cell carcinoma cannot be excluded. Urologic consult is recommended. Multiple simple cysts are also noted within the kidneys bilaterally. There is a subcentimeter, simple cyst associated with the pancreatic tail as well as within the left hepatic lobe. copyright 2010 [employer]- All Rights Reserved Qualifiers - * PATIENT BEING DISCHARGED WITH ANY OF THE FOLLOWING DIAGNOSIS: No VTE patient discharged on overlapping Therapy?: Yes
== END 2018-05-13 17:14 | disposition home or self-care (01) ==
LOC: ER 11:32 → EH 22:16 → 4S 05-12 13:34
PROVIDERS: ADMIT Internal Medicine; ATTEND Internal Medicine
DX: R07.89 Other chest pain (principal); I16.0 Hypertensive urgency; M19.011 Primary osteoarthritis, right shoulder; N28.89 Other specified disorders of kidney and ureter; R79.89 Other specified abnormal findings of blood chemistry; D72.829 Elevated white blood cell count, unspecified; K59.00 Constipation, unspecified; Q61.02 Congenital multiple renal cysts; R10.31 Right lower quadrant pain; R06.02 Shortness of breath; K76.0 Fatty (change of) liver, not elsewhere classified; D64.9 Anemia, unspecified; F12.10 Cannabis abuse, uncomplicated; E78.5 Hyperlipidemia, unspecified; K21.9 Gastro-esophageal reflux disease without esophagitis; M10.9 Gout, unspecified; Z79.899 Other long term (current) drug therapy; Z82.49 Family history of ischemic heart disease and other diseases of the circulatory system; Z80.9 Family history of malignant neoplasm, unspecified
CPT/HCPCS: 93005; 99285; 96372; 96374; 96375; 36415 ×3; 82553 ×2; 82962; 82550 ×2; 83735; 85025 ×2; 80048; 80053 ×2; 84484 ×2; 82668; 80061; 83880 ×2; 93306; 93017; 74183; 71045; 78452; 74177; 93010; A9576; A9500; J2785; J1940; J0360; J3490 ×2; J1650; Q9969

== ENCOUNTER 2019-01-13 16:01 | Emergency (ER) | payer OTHER, MEDICARE ==
[2019-01-13 16:15] VITALS: BP 146/90
[2019-01-13] MEDS ORDERED: DIPH/PERTUSS(ACELL)/TETANUS VAC/PF 0.5 ML SYR (>=10YO) IM ONE (16:33)
--- NOTE | 2019-01-13 16:49 | ER Document Report ---
ED Extremity Problem, Upper - General Chief Complaint: Arm Injury Stated Complaint: FISHING HOOK IN LEFT FOREARM Time Seen by Provider: 01/13/19 16:26 Primary Care Provider: ILSA PARR DO [NO LOCAL MD] - Follow up as needed Mode of Arrival: Ambulatory Information source: Patient Notes: 63-year-old male presented to ED with a fishhook in his left forearm. Patient is alert oriented respirations regular and unlabored speaking in full sentences walks with even steady gait. He states he is not allergic to anything. He states his tetanus is not up-to-date. He denies smoking does drink on the weekends does not do any drugs. He is retired lives with his . Only has a history of high blood pressure cholesterol and kidney insufficiency. TRAVEL OUTSIDE OF THE [place] IN LAST 30 DAYS: No - HPI Patient complains to provider of: Pain, Left - [place] in his left forearm, Forearm - [place] in his left forearm Onset: Just prior to arrival Recent injury: Yes Where: Outdoors, Public place Quality of pain: Sharp Pain Level: 3 Context: Other - Facial skin is arm Associated symptoms: None Exacerbated by: Movement Relieved by: Nothing Similar symptoms previously: No Recently seen / treated by doctor: No - Related Data Allergies/Adverse Reactions: No Known Allergies Allergy (Verified 05/11/18 11:33) Past Medical History - General Information source: Patient - Social History Smoking Status: Former Smoker Cigarette use (# per day): No Chew tobacco use (# tins/day): No Smoking Education Provided: No Frequency of alcohol use: None Drug Abuse: None Lives with: Family Family History: Hypertension, Malignancy Patient has suicidal ideation: No Patient has homicidal ideation: No - Past Medical History Cardiac Medical History: Reports: Hx Hypercholesterolemia, Hx Hypertension Pulmonary Medical History: Reports: None EENT Medical History: Reports: None Neurological Medical History: Reports: None Endocrine Medical History: Reports: None Renal/ Medical History: Reports: Hx Renal Insufficiency Malignancy Medical History: Reports None GI Medical History: Reports: Hx Gastroesophageal Reflux Disease Musculoskeletal Medical History: Reports Hx Arthritis - KOSTA ANKLES/KNEES, Reports Hx Gout Skin Medical History: Reports None Psychiatric Medical History: Reports: None Traumatic Medical History: Reports: None Infectious Medical History: Reports: None Past Surgical History: Reports: Hx Orthopedic Surgery - L knee - Immunizations Immunizations up to date: Yes Hx Diphtheria, Pertussis, Tetanus Vaccination: Yes Review of Systems - Review of Systems Constitutional: No symptoms reported EENT: No symptoms reported Cardiovascular: No symptoms reported Respiratory: No symptoms reported Gastrointestinal: No symptoms reported Genitourinary: No symptoms reported Male Genitourinary: No symptoms reported Musculoskeletal: Other - Patient left forearm Skin: No symptoms reported Hematologic/Lymphatic: No symptoms reported Neurological/Psychological: No symptoms reported -: Yes All other systems reviewed and negative Physical Exam - Vital signs Vitals: Temp Pulse Resp BP 98.0 F 56 L 18 146/90 H 01/13/19 16:14 01/13/19 16:14 01/13/19 16:14 01/13/19 16:14 Interpretation: Normal - General General appearance: Appears well, Alert - HEENT Head: Normocephalic, Atraumatic Eyes: Normal Pupils: PERRL - Respiratory Respiratory status: No respiratory distress Chest status: Nontender Breath sounds: Normal Chest palpation: Normal - Cardiovascular Rhythm: Regular Heart sounds: Normal auscultation Murmur: No - Abdominal Inspection: Normal Distension: No distension Bowel sounds: Normal Tenderness: Nontender Organomegaly: No organomegaly - Back Back: Normal, Nontender - Extremities General upper extremity: Nontender, Normal color, Normal ROM, Normal temperature General lower extremity: Normal inspection, Nontender, Normal color, Normal ROM, Normal temperature, Normal weight bearing. No: Suyapa's sign Forearm: Other - [place] left forearm - Neurological Neuro grossly intact: Yes Cognition: Normal Orientation: AAOx4 [place] Coma Scale Eye Opening: Spontaneous [place] Coma Scale Verbal: Oriented [place] Coma Scale Motor: Obeys Commands [place] Coma Scale Total: 15 Speech: Normal Motor strength normal: LUE, RUE, LLE, RLE Sensory: Normal - Psychological Associated symptoms: Normal affect, Normal mood - Skin Skin Temperature: Warm Skin Moisture: Dry Skin Color: Normal Course - Re-evaluation Re-evalutation: 01/13/19 21:35 Left forearm was cleaned well with surgical scrub. The fishhook site was anest hetized with 1% lidocaine and then a small incision made with an 11 blade to remove the fishhook. The patient request removed using hemostats with no difficulty. Site was well cleaned and rinsed patient was started on antibiotics and family was given instructions for keeping site clean and follow-up with primary doctor. Patient and did verbalize understanding and agreement with treatment plan and patient was discharged home. - Vital Signs Vital signs: Temp Pulse Resp BP Pulse Ox 98.0 F 56 L 18 146/90 H 01/13/19 16:14 01/13/19 16:14 01/13/19 16:14 01/13/19 16:14 Procedures - Additional Procedures Removal of fishhook from left forearm Time performed: 16:49 Additional Procedures: Other - Clean site well with surgical scrub anesthetized site with 1% lidocaine 5 cc remove the fishhook then scrubbed the site well with surgical scrub irrigated the wound with 500 cc of normal saline bacitracin and sterile dressing applied and patient started on doxycycline Discharge - Discharge Clinical Impression: [place] removed from left forearm Condition: Stable Disposition: HOME, SELF-CARE Additional Instructions: [place] removed from left forearm SOAP CLEANSING: Gently wash the wound daily using a mild soap (like Ivory, Phisoderm, Neutrogena). Use warm water, rubbing gently until all debris, ooze, and crusting have been washed from the wound. Allow to dry briefly (about 10 minutes) after cleaning. Repeat this cleansing at least three times a day for the first two days and then once or twice a day. ANTIBIOTIC OINTMENT PROTECTION: Your wounds are such that dressing them is not practical or optional. After cleansing, you should apply a thin coating of antibiotic ointment (Bacitracin, not Neosporin) to the wounds at least three times daily. This lessens infection risk, and may decrease the amount of scarring. Use a q-tip or dull butter knife, not your finger, to apply this ointment. Any debris or ooze which builds up in the ointment should be gently rubbed off with a sterile gauze pad. Harder crusting may need to be gently scrubbed off with a clean wash cloth with soap and warm water, perhaps applying a warm, wet wash cloth to the wound for ten minutes first. Development of redness, severe itching, or blistering may mean allergy to the ointment. See the doctor. TETANUS IMMUNIZATION GIVEN: You have been given an immunization against tetanus. Please record this in your records. In general, a booster is needed only once every 10 years. The tetanus shot protects against tetanus or "lockjaw," which is a complication of certain wound infections (the tetanus shot cannot protect against the actual in fection). The immunization site may become warm and red due to local reaction. If this occurs, apply warm compresses and take aspirin or ibuprofen to reduce inflammation and discomfort. Return for evaluation if the reaction becomes severe. Doxycycline Doxycycline (Vibramycin, Doryx) is an antibiotic of the tetracycline family. This type of drug is useful for infections of the respiratory tract and genital tract, and is sometimes used for intestinal infections. Unlike most tetracyclines, doxycycline can be taken with food. It is longer acting, and (usually) less prone to side effects than regular tetracycline. Tetracycline antibiotics can stain immature teeth and SHOULD NOT BE TAKEN BY CHILDREN, NURSING MOTHERS, OR WOMEN. Tetracyclines can make you more prone to sunburn. Abdominal cramping, nausea, and diarrhea are occasional side effects. Women may experience vaginal yeast infections. Call the doctor at once if you develop hives, itching, shortness of breath, or lightheadedness. FOLLOW-UP CARE: Please return in ___4__ days for an infection check and dressing change. If you have been referred to another physician for follow-up care, call that physicians office for an appointment as you were instructed. If you experience a significant change in your laceration, or if you are concerned there may be an infection (swelling, redness, drainage, increasing tenderness, red streaks, tender lumps in the armpit or groin above the laceration, or fever), return to the Emergency Department immediately re-evaluation. Prescriptions: Doxycycline Hyclate 100 mg PO BID #20 capsule Forms: Elevated Blood Pressure Referrals: ILSA PARR DO [NO LOCAL MD] - Follow up as needed
[2019-01-13] MEDS ORDERED: DOXYCYCLINE HYCLATE 100 MG TABLET PO ONE (16:52)
[2019-01-13] MEDS ORDERED: IBUPROFEN 600 MG TABLET PO ONE (16:52)
== END 2019-01-13 17:01 | disposition home or self-care (01) ==
LOC: ER 16:01
DX: S50.852A Superficial foreign body of left forearm, initial encounter (principal); M79.602 Pain in left arm; W22.8XXA Striking against or struck by other objects, initial encounter; I10 Essential (primary) hypertension; Z87.891 Personal history of nicotine dependence
CPT/HCPCS: 90471; 90715; 99283

== ENCOUNTER 2019-04-07 05:32 | Emergency (ER) | payer OTHER, MEDICARE ==
[2019-04-07] MEDS ORDERED: METHYLPREDNISOLONE INJ 125 MG/2 ML SDV IM ONE (06:27)
--- NOTE | 2019-04-07 06:31 | ER Document Report ---
HPI - HPI Time Seen by Provider: 04/07/19 06:22 Pain Level: 5 Notes: Patient is a 63-year-old male with a history of hypertension, CKD stage III, gout who presents complaining of gout exacerbation to his left elbow over the past couple days. There is no injury. He has not noticed any break in the skin. Patient states he is very sensitive to the elbow and movement makes the pain worse as well. Patient states that his Motrin has not been helping him. Patient states that he has had flareups in other joints similar to this. Denies drug allergies. He is able to eat and drink without difficulty. He is urinating normally. No recent illness otherwise. No history of IV drug abuse. Denies any headache, fever, neck pain, URI, sore throat, chest pain, palpitations, syncope, cough, shortness of breath, wheeze, dyspnea, abdominal pain, nausea/vomiting/diarrhea, urinary retention, dysuria, hematuria, loss of control of bowel or bladder, numbness/tingling, muscle paralysis/weakness, or rash. - ROS Systems Reviewed and Negative: Yes All other systems reviewed and negative - CONSTITUTIONAL Constitutional: DENIES: Fever, Chills - REPRODUCTIVE Reproductive: DENIES: : Past Medical History - Social History Smoking Status: Current Every Day Smoker Family History: Hypertension, Malignancy Patient has suicidal ideation: No Patient has homicidal ideation: No - Past Medical History Cardiac Medical History: Reports: Hx Hypercholesterolemia, Hx Hypertension Denies: Hx Heart Attack Pulmonary Medical History: Denies: Hx Asthma, Hx Bronchitis, Hx COPD, Hx Pneumonia Neurological Medical History: Denies: Hx Seizures Renal/ Medical History: Reports: Hx Renal Insufficiency. Denies: Hx Peritoneal Dialysis GI Medical History: Reports: Hx Gastroesophageal Reflux Disease Musculoskeletal Medical History: Reports Hx Arthritis - [place] ANKLES/KNEES, Reports Hx Gout Past Surgical History: Reports: Hx Orthopedic Surgery - L knee - Immunizations Immunizations up to date: Yes Hx Diphtheria, Pertussis, Tetanus Vaccination: Yes Vertical Provider Document - CONSTITUTIONAL Agree With Documented VS: Yes Notes: PHYSICAL EXAMINATION: GENERAL: Well-appearing, well-nourished and in no acute distress. HEAD: Atraumatic, normocephalic. EYES: Pupils equal round and reactive to light, extraocular movements intact, sclera anicteric, conjunctiva are normal. ENT: Nares patent and without discharge. oropharynx clear without exudates. No tonsilar hypertrophy or erythema. Moist mucous membranes. NECK: Normal range of motion, supple without lymphadenopathy LUNGS: Breath sounds clear to auscultation bilaterally and equal. No wheezes rales or rhonchi. HEART: Regular rate and rhythm without murmurs, rubs, gallops. Musculoskeletal: Left elbow: + swelling noted with warmth and hypersensitivity to light touch. LROM to passive/active. Strength 5+/5. N/V intact distal. No significant olecranon swelling or bursitis. Extremities: No cyanosis, clubbing, or edema b/l. Peripheral pulses 2+. Capillary refill less than 3 seconds. NEUROLOGICAL: Normal speech, normal gait. Normal sensory, motor exams otherwise PSYCH: Normal mood, normal affect. SKIN: Warm, Dry, normal turgor, no rashes or lesions noted. see above. - INFECTION CONTROL TRAVEL OUTSIDE OF THE [place] IN LAST 30 DAYS: No Course - Re-evaluation Re-evalutation: 04/07/19 06:[address] Schultz who is in agreement with dispo/plan: Patient is an afebrile, well-hydrated, 63-year-old male who presents to the ED with Left elbow pain, suspect acute gout flareup. Vitals are acceptable without significant tachycardia, tachypnea, or hypoxia. PE is otherwise unremarkable for any neurovascular complaints, obvious tendon/leg rupture, obvious fracture/dislocation, septic joint. PE is suggestive of gout flare with the swelling and hypersensitivity. Patient expresses that this is gout and has not had any other injury. No IV drug abuse and no evidence of cuts or opening to the skin. Patient is nontoxic-appearing and is tolerating p.o. without difficulty. No further labs or imaging warranted at this time. Pt does well with steroids for his gout. I will send him home with a prescription for a steroid taper. Conservative measures otherwise for symptoms. Recheck with your PCM in 3-5 days. Return to the ED with any worsening/concerning symptoms otherwise as reviewed discharge. Patient is in agreement. - Vital Signs Vital signs: Temp Pulse Resp BP Pulse Ox 97.8 F 50 L 20 147/89 H 94 04/07/19 05:58 04/07/19 05:58 04/07/19 05:58 04/07/19 05:58 04/07/19 05:58 Discharge - Discharge Clinical Impression: Left elbow pain Condition: Stable Disposition: HOME, SELF-CARE Additional Instructions: Rest, Ice, Compression, Elevation Tylenol/ibuprofen as needed Light stretches daily Strength exercises as able F/u with your PCP in 3-5 days for a recheck Consider consult(s) with Orthopedics/physical therapy for ongoing/worsening symptoms Return to the ED with any worsening symptoms and/or development of fever, headache, chest pain, palpitations, syncope, shortness of breath, trouble breathing, abdominal pain, n/v/d, muscle weakness/paralysis, numbness/tingling, swelling, redness, or other worsening symptoms that are concerning to you. Prescriptions: Prednisone [Deltasone 10 mg Tablet] 10 mg PO DAILY #18 tablet Forms: Elevated Blood Pressure Referrals: [facility] [Primary Care Provider] - Follow up as needed
[2019-04-07] MEDS ORDERED: ACETAMINOPHEN 325 MG TABLET PO ONE (06:46)
[2019-04-07] MEDS ORDERED: IBUPROFEN 800 MG TABLET PO ONE (06:46)
[2019-04-07 07:00] VITALS: BP 156/90
== END 2019-04-07 06:59 | disposition home or self-care (01) ==
LOC: ER 05:32
DX: M25.522 Pain in left elbow (principal); M25.422 Effusion, left elbow; F17.200 Nicotine dependence, unspecified, uncomplicated; I10 Essential (primary) hypertension
CPT/HCPCS: 99283; 96372; J2930

== ENCOUNTER 2019-04-30 06:23 | Emergency (ER) | payer OTHER, MEDICARE ==
--- NOTE | 2019-04-30 08:44 | ER Document Report ---
ED Hand/Wrist Injury - General Chief Complaint: Wrist Pain Stated Complaint: WRIST AND ELBOW JOIN PAIN Time Seen by Provider: 04/30/19 08:44 Primary Care Provider: ZAHIRA,ANDRA [Primary Care Provider] - Follow up as needed Notes: CHIEF COMPLAINT: Left elbow and wrist pain for 2 weeks HPI: 63-year-old male with history of gouty arthritis presenting with left elbow and left wrist pain over the last 2 weeks. No swelling or redness. No fever. Pain with movement. Patient states it feels like his gout has flared up again and he states he is out of the medications he would normally take for his gouty arthritis. Patient denies radiation of the discomfort through the chest or shoulder. He states the pain is specifically exacerbated by movement. Has not called his PCP for evaluation of symptoms ROS: See HPI - all other systems were reviewed and are otherwise negative Constitutional: no fever Cardiovascular: no chest pain Resp: no SOB, no cough : no dysuria Integumentary: no rash Allergy: no hives Musculoskeletal: + extremity pain or swelling Neurological: no numbness/tingling, no weakness MEDICATIONS: I agree with the patient medications as charted by the RN. ALLERGIES: I agree with the allergies as charted by the RN. PAST MEDICAL HISTORY/PAST SURGICAL HISTORY: Reviewed and agree as charted by RN. SOCIAL HISTORY: Reviewed and agree as charted by RN. FAMILY HISTORY: No significant familial comorbid conditions directly related to patient complaint EXAM: Reviewed vital signs as charted by RN. CONSTITUTIONAL: Alert and oriented and responds appropriately to questions. Well-appearing; well-nourished. No acute distress, I had to wake the patient from sleep to examine him HEAD: Normocephalic; atraumatic EYES: PERRL; Conjunctivae clear, sclerae non-icteric ENT: normal nose; no rhinorrhea; moist mucous membranes; pharynx without lesions noted NECK: Supple without meningismus; non-tender; no cervical lymphadenopathy, no masses CARD: symmetric distal pulses RESP: Normal chest excursion without splinting or tachypnea ABD/GI: non-distended BACK: The back appears normal EXT: Normal ROM in all joints; there is no visible soft tissue swelling to the left arm, shoulder, elbow, wrist. There is mild tenderness on palpation of the olecranon region of the left elbow and over the radial side of the left wrist. Patient is able to fully flex and extend the arm at the elbow and shoulder. Radial and ulnar pulses are present in the left wrist. Patient is able to flex and extend the fingers of the left hand as well as abduct the thumb. Sensation is intact in the distal fingertips to touch with capillary refill less than 3 seconds SKIN: Normal color for age and race; warm; dry; good turgor; no acute lesions noted NEURO: Moves all extremities equally; Motor and sensory function intact PSYCH: The patient's mood and manner are appropriate. Grooming and personal hygiene are appropriate. MDM: 63-year-old male with a history of gouty arthritis presenting with left elbow left wrist pain, he believes it is gout. He does not have increased warmth, erythema or soft tissue swelling. Likely mild bursitis or arthritic changes. Will place patient on a course of Indocin, follow-up orthopedics TRAVEL OUTSIDE OF THE [place] IN LAST 30 DAYS: No - Related Data Allergies/Adverse Reactions: No Known Allergies Allergy (Verified 04/30/19 06:30) Home Medications: MOTRIN. HTN MED. GERD. WATER PILL Past Medical History - Social History Smoking Status: Never Smoker Family History: Hypertension, Malignancy Patient has suicidal ideation: No Patient has homicidal ideation: No - Past Medical History Cardiac Medical History: Reports: Hx Hypercholesterolemia, Hx Hypertension Denies: Hx Heart Attack Pulmonary Medical History: Denies: Hx Asthma, Hx Bronchitis, Hx COPD, Hx Pneumonia Neurological Medical History: Denies: Hx Seizures Renal/ Medical History: Reports: Hx Renal Insufficiency. Denies: Hx Peritoneal Dialysis GI Medical History: Reports: Hx Gastroesophageal Reflux Disease Musculoskeletal Medical History: Reports Hx Arthritis - [place] ANKLES/KNEES, Reports Hx Gout Past Surgical History: Reports: Hx Orthopedic Surgery - L knee - Immunizations Immunizations up to date: Yes Hx Diphtheria, Pertussis, Tetanus Vaccination: Yes Physical Exam - Vital signs Vitals: Temp Pulse BP Pulse Ox 98.0 F 58 L 130/73 H 98 04/30/19 06:29 04/30/19 06:29 04/30/19 06:29 04/30/19 06:29 Course - Vital Signs Vital signs: Temp Pulse Resp BP Pulse Ox 98.0 F 58 L 130/73 H 98 04/30/19 06:29 04/30/19 06:29 04/30/19 06:29 04/30/19 06:29 Discharge - Discharge Clinical Impression: Elbow pain, left Condition: Stable Disposition: HOME, SELF-CARE Instructions: Arthritis (OM) Additional Instructions: Use ice or cool compresses to the left elbow and wrist to decrease inflammation, use them for 5 to 10 minutes at a time twice daily. Do not place ice directly on the skin. Take the Indocin as prescribed to help with the pain and inflammation. Follow-up with both your primary care provider and orthopedics for further evaluation and treatment call for appointment Prescriptions: Indomethacin [Indocin 25 Mg Capsule] 25 mg PO BID #14 capsule Referrals: [facility] [Primary Care Provider] - Follow up as needed EDWIGE ZEE JR, [ACTIVE PROVISIONAL STAFF] - Follow up as needed
[2019-04-30] MEDS ORDERED: KETOROLAC TROMETHAMINE 60 MG/2 ML SDV IM ONE (08:47)
[2019-04-30 09:36] VITALS: BP 138/83
== END 2019-04-30 09:37 | disposition home or self-care (01) ==
LOC: ER 06:23
DX: M25.522 Pain in left elbow (principal); M25.532 Pain in left wrist; Z87.39 Personal history of other diseases of the musculoskeletal system and connective tissue; K21.9 Gastro-esophageal reflux disease without esophagitis; I10 Essential (primary) hypertension; Z79.1 Long term (current) use of non-steroidal anti-inflammatories (NSAID); Z79.899 Other long term (current) drug therapy
CPT/HCPCS: 99283; 96372; J1885

== ENCOUNTER 2020-02-09 18:43 | Emergency (ER) | payer OTHER, MEDICARE ==
[2020-02-09] MEDS ORDERED: HYDROCODONE/ACETAMINOPHEN 5-325 MG TABLET PO ONE ×2 (19:13→20:24)
[2020-02-09] MEDS ORDERED: LIDOCAINE 5% (700 MG) TRANSDERMAL ADH..PATCH TP ONE (19:13)
[2020-02-09] MEDS ORDERED: CYCLOBENZAPRINE HCL 10 MG TABLET PO ONE ×2 (19:13→20:28)
--- NOTE | 2020-02-09 19:14 | ER Document Report ---
HPI - HPI Patient complains to provider of: Right-sided neck pain Time Seen by Provider: 02/09/20 19:06 Pain Level: 5 Notes: 64-year-old male with past medical history of hypertension, 1 kidney to the emergency department with complaints of 2 to 3 days of right-sided neck pain and stiffness. He states initially he thought he just slept wrong on his pillow. He states that he thought he could just stretch it and take one 800 mg Motrin and it would get better. He states however over the past couple of days it is gotten significantly worse. He states he can turn his neck or move very well at all. He denies any fevers or chills. He denies any numbness and tingling down his arms or weakness into his arms. He denies any cough, sore throat, chest pain, shortness of breath, blurry vision. He does admit to a slight headache with it. He states that when it did not get better he got concerned and decided to seek medical treatment. - ROS Systems Reviewed and Negative: Yes All other systems reviewed and negative - CONSTITUTIONAL Constitutional: DENIES: Fever, Chills - EENT EENT: DENIES: Sore Throat, Ear Pain, Congestion - NEURO Neurology: REPORTS: Headache. DENIES: Weakness, Vision blurred, Dizzinesss / Vertigo - CARDIOVASCULAR Cardiovascular: DENIES: Chest pain - RESPIRATORY Respiratory: DENIES: Trouble Breathing, Coughing - GASTROINTESTINAL Gastrointestinal: DENIES: Abdominal Pain, Nausea, Patient vomiting, Diarrhea - MUSCULOSKELETAL Musculoskeletal: REPORTS: Neck Pain - See HPI - DERM Skin Color: Normal Skin Problems: None Past Medical History - General Information source: Patient - Social History Smoking Status: Never Smoker Frequency of alcohol use: None Drug Abuse: None Family History: Hypertension, Malignancy - Past Medical History Cardiac Medical History: Reports: Hx Hypercholesterolemia, Hx Hypertension Denies: Hx Heart Attack Pulmonary Medical History: Denies: Hx Asthma, Hx Bronchitis, Hx COPD, Hx Pneumonia Neurological Medical History: Denies: Hx Seizures Renal/ Medical History: Reports: Hx Renal Insufficiency. Denies: Hx Peritoneal Dialysis GI Medical History: Reports: Hx Gastroesophageal Reflux Disease Musculoskeletal Medical History: Reports Hx Arthritis - KOSTA ANKLES/KNEES, Reports Hx Gout Past Surgical History: Reports: Hx Orthopedic Surgery - L knee - Immunizations Immunizations up to date: Yes Hx Diphtheria, Pertussis, Tetanus Vaccination: Yes Vertical Provider Document - CONSTITUTIONAL Agree With Documented VS: Yes Exam Limitations: No Limitations General Appearance: WD/WN, Moderate Distress Notes: Moderate pain distress, holding neck very still - INFECTION CONTROL TRAVEL OUTSIDE OF THE [place] IN LAST 30 DAYS: No - HEENT HEENT: Atraumatic, Normocephalic, PERRLA - NECK Notes: There is tenderness to palpation over the right side of the neck musculature with noted tenderness along the sternocleidomastoid muscles as well as the scalenes with some spasm. There is no midline tenderness to palpation of the c ervical bony spine. There is no step-off or deformity. Patient has significant amount of pain if he tries to move his head. There is also a little bit of tenderness to palpation over the left superior border of the trapezius muscle. - RESPIRATORY Respiratory: Breath Sounds Normal, No Respiratory Distress. negative: Rales, Rhonchi, Wheezing - CARDIOVASCULAR Cardiovascular: Regular Rate, Regular Rhythm, No Murmur - GI/ABDOMEN Gastrointestinal: Abdomen Soft, Abdomen Non-Tender, No Organomegaly - BACK Back: Normal Inspection Notes: No tenderness to palpation to the midline thoracic and lumbar spine. There is no deformity or step-off. Patient is able to ambulate without difficulty. - MUSCULOSKELETAL/EXTREMETIES Notes: Patient has full range of motion in bilateral upper extremity against resistance with 5 out of 5 strength and flexion extension. Handgrip is 5 out of 5 bilaterally. Radial pulses are intact and equal bilaterally. No snuffbox tenderness. Cap refill is less than 2 seconds in all fingers. - NEURO Level of Consciousness: Awake, Alert, Appropriate Motor/Sensory: No Motor Deficit, No Sensory Deficit - DERM Integumentary: Warm, Dry, No Rash Course - Re-evaluation Re-evalutation: Patient initially given 1 Vicodin, Lidoderm patch, 1 5 mg Flexeril. After about 20 minutes we checked on the patient he states that his pain had not gotten that much better. Thus, we gave a second Vicodin and 1 more 5 mg Flexeril. We then applied heat to his neck. We checked on the patient about 30 minutes later and he stated that he felt so much better than when he first came in. He was able to move his head side to side and able to bring his right ear more to his shoulder. He states that he felt ready to go home. Plan will be to discharge the patient home he is to follow-up with primary care. Encouraged to return if any worsening symptoms. Patient agrees - Vital Signs Vital signs: Temp Pulse Resp BP Pulse Ox 98.5 F 77 18 131/77 H 97 02/09/20 18:53 02/09/20 18:53 02/09/20 18:53 02/09/20 18:53 02/09/20 18:53 Discharge - Discharge Clinical Impression: Torticollis, Neck muscle spasm Condition: Stable Disposition: HOME, SELF-CARE Instructions: Torticollis ([facility]) Additional Instructions: Take medicines as prescribed, Gentle stretching. FOllow up with primary care and orthopedist. Return if worsening symptoms. Prescriptions: Cyclobenzaprine HCl [Flexeril 10 mg Tablet] 10 mg PO TID #20 tablet Lidocaine [Lidoderm 5% (700 mg) Transdermal Patch] 1 patch TP DAILY #30 adh..patch Hydrocodone/Acetaminophen [Bryant 5-325 mg Tablet] 1 tab PO Q6H #12 tablet [facility]errals: [facility] [[facility] Care [facility]] - Follow up in 1 week
[2020-02-09 21:53] VITALS: BP 157/99
== END 2020-02-09 21:30 | disposition home or self-care (01) ==
LOC: ER 18:43
DX: M43.6 Torticollis (principal); M62.838 Other muscle spasm; R51.9 Headache, unspecified; I10 Essential (primary) hypertension
CPT/HCPCS: 99284

== ENCOUNTER 2020-02-23 17:31 | Emergency (ER) | payer OTHER, MEDICARE ==
[2020-02-23] MEDS ORDERED: HYDROCODONE/ACETAMINOPHEN 5-325 MG TABLET PO ONE (19:15)
--- NOTE | 2020-02-23 19:21 | ER Document Report ---
ED Medical Screen (RME) - General Chief Complaint: Neck Problem Stated Complaint: HEAD/NECK PAIN Time Seen by Provider: 02/23/20 19:06 Primary Care Provider: ANDRA RODRIGES [Primary Care Provider] - Follow up as needed Notes: Patient presents complaining of neck pain for the past week. Patient was seen here recently for this but states that he feels as though something is wrong. Patient also complains of pain to the chest area with deep inspiration for the past week as well. Patient denies any cough or cold symptoms. Patient denies any fever. Patient denies any trauma to the neck. Patient with a history of hypertension, dyslipidemia, GERD and gout with a previous nephrectomy I have greeted and performed a rapid initial assessment of this patient. A comprehensive ED assessment and evaluation of the patient, analysis of test results and completion of the medical decision making process will be conducted by additional ED providers. TRAVEL OUTSIDE OF THE [place] IN LAST 30 DAYS: No - Related Data Allergies/Adverse Reactions: No Known Allergies Allergy (Verified 04/30/19 06:30) Past Medical History - Past Medical History Cardiac Medical History: Reports: Hx Hypercholesterolemia, Hx Hypertension Denies: Hx Heart Attack Pulmonary Medical History: Denies: Hx Asthma, Hx Bronchitis, Hx COPD, Hx Pneumonia Neurological Medical History: Denies: Hx Seizures Renal/ Medical History: Reports: Hx Renal Insufficiency. Denies: Hx Peritoneal Dialysis GI Medical History: Reports: Hx Gastroesophageal Reflux Disease Musculoskeltal Medical History: Reports Hx Arthritis - KOSTA ANKLES/KNEES, Reports Hx Gout Past Surgical History: Reports: Hx Orthopedic Surgery - L knee - Immunizations Immunizations up to date: Yes Hx Diphtheria, Pertussis, Tetanus Vaccination: Yes Physical Exam - General General appearance: Alert Notes: Patient with posterior cervical midline tenderness and paraspinal cervical muscle tenderness, patient able to move head through full range of motion without guarding Doctor's Discharge - Discharge Referrals: [facility] [Primary Care Provider] - Follow up as needed
[2020-02-23 20:09] LABS: ABSOLUTE MONOCYTES (AUTO) 0.5 10^3/uL (0.1-1.4); ABSOLUTE NEUT (AUTO) 3.9 10^3/uL (1.7-8.2); BASOPHILS % (AUTO) 0.4 % (0-2); EOSINOPHILS % (AUTO) 0.1 % (0-6); HEMATOCRIT 37.4 % (37.9-51.0); HEMOGLOBIN 12.4 g/dL (13.5-17.0); LYMPHOCYTES % (AUTO) 19.2 % (13-45); MEAN CORPUSCULAR HEMOGLOBIN 30.8 pg (27.0-33.4); MEAN CORPUSCULAR HGB CONC 33.2 g/dL (32.0-36.0); MEAN CORPUSCULAR VOLUME 93 fl (80-97); MONOCYTES % (AUTO) 8.8 % (3-13); PLATELET COUNT 205 10^3/uL (150-450); RED BLOOD COUNT 4.02 10^6/uL (4.35-5.55); RED CELL DISTRIBUTION WIDTH 13.9 % (11.5-14.0); SEGMENTED NEUTROPHILS % (AUTO) 71.5 % (42-78); TOTAL CELLS COUNTED % (AUTO) 100 %; WHITE BLOOD COUNT 5.4 10^3/uL (4.0-10.5)
--- NOTE | 2020-02-23 20:18 | RADIOLOGY REPORT (SQ) ---
EXAM DESCRIPTION: CHEST SINGLE VIEW IMAGES COMPLETED DATE/TIME: 02/23/2020 7:35 pm REASON FOR STUDY: pain with deep inspiration COMPARISON: AP chest 05/11/2018 EXAM PARAMETERS: NUMBER OF VIEWS: One view. TECHNIQUE: Single frontal radiographic view of the chest acquired. RADIATION DOSE: NA LIMITATIONS: None. FINDINGS: LUNGS AND PLEURA: Patchy airspace disease at the left lung base atelectasis versus pneumon ia. Right lung grossly clear. No pleural effusion or pneumothorax MEDIASTINUM AND HILAR STRUCTURES: No masses. Contour normal. HEART AND VASCULAR STRUCTURES: Mild cardiomegaly BONES: No acute findings. HARDWARE: None in the chest. OTHER: No other significant finding. IMPRESSION: Patchy airspace disease left lung base TECHNICAL DOCUMENTATION: JOB ID: [id number] 2010 [employer]- All Rights Reserved Reading location - IP/workstation name: [id number]
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
[2020-02-23 20:26] LABS: ALBUMIN 3.5 g/dL (3.5-5.0); ALKALINE PHOSPHATASE 64 U/L (38-126); ANION GAP 10 (5-19); ASPARTATE AMINO TRANSFERASE 50 U/L (17-59); BILIRUBIN,DIRECT 0.2 mg/dL (0.0-0.4); BILIRUBIN,TOTAL 0.8 mg/dL (0.2-1.3); BLOOD UREA NITROGEN 20 mg/dL (7-20); CALCIUM 8.6 mg/dL (8.4-10.2); CARBON DIOXIDE 26 mmol/L (22-30); CHLORIDE 100 mmol/L (98-107); GLUCOSE 96 mg/dL (75-110); POTASSIUM 3.7 mmol/L (3.6-5.0); TOTAL PROTEIN 6.5 g/dL (6.3-8.2)
[2020-02-23] MEDS ORDERED: CEFTRIAXONE 1 GM/D5W RTU 1 GM/50 ML RTUPB IV ONE (21:05)
[2020-02-23] MEDS ORDERED: CYCLOBENZAPRINE HCL 10 MG TABLET PO ONE (22:13)
[2020-02-23] MEDS ORDERED: AZITHROMYCIN 250 MG TABLET PO ONE (22:14)
--- NOTE | 2020-02-23 22:26 | ER Document Report ---
ED General - General Chief Complaint: Neck Problem Stated Complaint: HEAD/NECK PAIN Time Seen by Provider: 02/23/20 19:06 Primary Care Provider: [facility] [Primary Care Provider] - Follow up as needed TRAVEL OUTSIDE OF THE [place] IN LAST 30 DAYS: No - HPI Notes: Patient is a 64-year-old male who presents to the emergency department for evaluation. He is an extremely difficult historian. He states to me first that he is here for neck and shoulder pain. He states he was seen here several weeks ago for this. He states that the Flexeril helps somewhat, the pain medicine helped somewhat, but his pain persists. He tells me that he does not take ibuprofen for his pain, his daughter tells me otherwise. She states he takes it regularly. The patient also noted chest pain to one of the providers in the front. The patient states that he has not had any chest pain today. He states he may have had some yesterday, when I take a deep breath." But he states "I am not really breathing hard" and really will not elaborate more on his chest pain. Every time I asked him to elaborate more on it, he points to his neck and shoulders, states that the issue. The patient denies having had any chest pain over the last 24 hours. He has had a cough. He has seemed more short of breath per his daughter, the patient himself states that he is not short of breath. He has been eating and drinking normally. Patient states that he follows with a urologist and nephrology. He did have a renal mass removed, it was found to be benign per the daughter. - Related Data Allergies/Adverse Reactions: No Known Allergies Allergy (Verified 04/30/19 06:30) Past Medical History - General Information source: Patient, Relative - Social History Smoking Status: Never Smoker Drug Abuse: Marijuana Family History: Hypertension, Malignancy - Past Medical History Cardiac Medical History: Reports: Hx Hypercholesterolemia, Hx Hypertension Denies: Hx Heart Attack Pulmonary Medical History: Denies: Hx Asthma, Hx Bronchitis, Hx COPD, Hx Pneumonia Neurological Medical History: Denies: Hx Seizures Renal/ Medical History: Reports: Hx Renal Insufficiency, Other - Renal mass, s tatus post left nephrectomy. Denies: Hx Peritoneal Dialysis GI Medical History: Reports: Hx Gastroesophageal Reflux Disease Musculoskeletal Medical History: Reports Hx Arthritis - KOSTA ANKLES/KNEES, Reports Hx Gout Past Surgical History: Reports: Hx Orthopedic Surgery - L knee, Other - Left nephrectomy - Immunizations Immunizations up to date: Yes Hx Diphtheria, Pertussis, Tetanus Vaccination: Yes Review of Systems - Review of Systems Constitutional: No symptoms reported EENT: No symptoms reported Cardiovascular: See HPI Respiratory: See HPI Gastrointestinal: No symptoms reported Genitourinary: No symptoms reported Musculoskeletal: See HPI Skin: No symptoms reported Neurological/Psychological: No symptoms reported -: Yes All other systems reviewed and negative Physical Exam - Vital signs Vitals: Resp Pulse Ox 24 H 99 02/23/20 21:46 02/23/20 21:46 - Notes Notes: This is a 64-year-old male who appears older than his stated age, in no acute distress. Vital signs reviewed, please refer to chart. Head is normocephalic, atraumatic. Pupils equal round, reactive to light. Neck is supple without meningismus. He has marked increased muscle tension noted, minimal tenderness to palpation over the right trapezius. Heart is regular rate and rhythm. Lungs are clear to auscultation bilaterally. Abdomen is soft, nontender, normoactive bowel sounds throughout. Extremities without cyanosis, clubbing. Posterior calves are nontender. Peripheral pulses are equal. Skin is warm and dry. Patient is awake, alert, neurological exam is nonfocal. Course - Re-evaluation Re-evalutation: 02/23/20 22:30 Patient presents emergency department for evaluation. He was initially seen through triage. Laboratory investigations were as ordered, as well his imaging. Imaging reveals a left lower lobe infiltrate. Patient had Rocephin ordered from the front, I will order Zithromax. Covid test also ordered, will be pending. Patient's troponin is moderately elevated. This may be secondary to the mild HEMANT that he is suffering. I talked at length with the patient, I stron gly encouraged him to heed the advice of his nephrology/urology physicians, to avoid ibuprofen, stay hydrated. Certainly he has a mild HEMANT but nothing worthy of admission at this time. We will repeat troponin. I did review a stress test that the patient had just over 18 months ago. It was entirely negative. I cannot get the patient to be more specific in regards to his chest pain but it certainly sounds atypical, as he states that it happens more at rest. Awaiting second troponin, we will continue to monitor. 02/24/20 00:59 Patient second troponin is come down significantly. His neck and shoulder pain is significantly improved. Again I asked the patient about the chest pain, and he states that he really is not having any, it did not have any since yesterday, and really cannot quantify any of it for me. We talked at length about ibuprofen avoidance and his kidney function being altered. He already has outpatient follow-up with urology/nephrology. I strongly encouraged him to follow-up closely in regards to that. He voiced understanding. Otherwise, his chest x-ray showed pneumonia which was treated. I will send him with a prescription for Zithromax. We will also treat him as a PUI. He is to follow- up closely with primary care, nephrology. He is to return to the ED with worsening. - Vital Signs Vital signs: Temp Pulse Resp BP Pulse Ox 98.8 F 19 118/82 97 02/24/20 00:59 02/24/20 00:32 02/24/20 00:31 02/24/20 00:32 - Laboratory Result Diagrams: 02/23/20 19:49 02/23/20 19:49 Laboratory results interpreted by me: 02/23/20 02/23/20 19:49 19:49 RBC 4.02 L Hgb 12.4 L Hct 37.4 L Sodium 135.8 L Creatinine 1.80 H Est GFR ( Amer) 46 L Est GFR (MDRD) Non-Af 38 L - Diagnostic Test Radiology reviewed: Reports reviewed Radiology results interpreted by me: 02/24/20 01:[address] 02/23/20 19:12 IMPRESSION: CHRONIC DEGENERATIVE CHANGES. NO ACUTE FINDINGS. Chest X-Ray 02/23/20 19:14 IMPRESSION: Patchy airspace disease left lung base - EKG Interpretation by Me Additional EKG results interpreted by me: 02/24/20 01:45 Sinus mechanism with a rate of 61 bpm. PVC noted. Mild left axis deviation. LVH. Nonspecific ST changes, no acute changes concerning for ischemia or infarction. No significant change when compared to prior study of May 11, 2018 Discharge - Discharge Clinical Impression: Neck pain, Acute kidney injury, Person under investigation for COVID-19 Pneumonia Qualifiers: Pneumonia type: due to unspecified organism Laterality: left Lung location: lower lobe of lung Qualified Code(s): J18.9 - Pneumonia, unspecified organism Condition: Stable Disposition: HOME, SELF-CARE Instructions: COVID-19 Guidance for Persons Under Investigation, Kidney Function Abnormality ([facility]), Pneumonia ([facility]), Neck Injury (Cervical Strain) ([facility]) Additional Instructions: You have shown a mild change in your kidney function. It is very important that you avoid taking ibuprofen and other [id number] NSAIDs. It is important that you follow-up with your learning support assistant/urologist. Follow-up with your primary care provider. Your chest x-ray shows pneumonia. You have been given a dose of IV antibiotics, it is very important that you take the Zithromax as it as directed until it is gone. You have been tested for COVID-19. You will be contacted with results. In the meantime you and any other members of your household should isolate at home, quarantined away from other family members when possible. In regards to neck pain, apply moist heat to the area. Gentle stretching. Take Flexeril as directed, please watch for dizziness and drowsiness with this medication. Follow-up with your primary care provider and learning support assistant this week. If you develop worsening or new concerning symptoms of any sort, please return immediately to the emergency department for reevaluation. [facility]errals: [facility] [Primary Care Provider] - Follow up as needed
[2020-02-24 02:09] VITALS: BP 152/94
--- NOTE | 2020-02-24 18:11 | EKG REPORT ---
SEVERITY:- ABNORMAL ECG - SINUS RHYTHM PROBABLE LVH WITH SECONDARY REPOL ABNRM BORDERLINE PROLONGED QT INTERVAL : Confirmed by: Mark Duncan MD 24-Feb-2020 18:11:00
== END 2020-02-24 02:12 | disposition home or self-care (01) ==
LOC: ER 17:31
DX: U07.1 COVID-19 (principal); J18.9 Pneumonia, unspecified organism; F12.10 Cannabis abuse, uncomplicated; I11.9 Hypertensive heart disease without heart failure; N17.9 Acute kidney failure, unspecified; M47.812 Spondylosis without myelopathy or radiculopathy, cervical region; M25.519 Pain in unspecified shoulder
CPT/HCPCS: 93005; 99285; 96365; 36415; 85025; 87635; 80053; 84484; 71045; 72125; 93010; J0696; C9803

== ENCOUNTER 2020-03-07 17:33 | Emergency (ER) | payer OTHER, MEDICARE ==
[2020-03-07 17:50] VITALS: BP 142/98
--- NOTE | 2020-03-07 18:24 | ER Document Report ---
ED Medical Screen (RME) - General Chief Complaint: Abdominal Pain Stated Complaint: LEFT LEG/HIP PAIN Time Seen by Provider: 03/07/20 18:16 Primary Care Provider: ANDRA RODRIGES [Primary Care Provider] - Follow up as needed Mode of Arrival: Wheelchair Information source: Patient Notes: 64-year-old man presented to ED for complaint of left lower abdominal, back, and left leg pain since yesterday. He states his daughter now because he took 600 mg of ibuprofen this morning. He did have kidney cancer on the left side with the left kidney removed. He also has high blood pressure. I have ordered blood urine and CT in the triage area. He will be seen by another provider. I have greeted and performed a rapid initial assessment of this patient. A comprehensive ED assessment and evaluation of the patient, analysis of test results and completion of medical decision making process will be conducted by an additional ED providers. TRAVEL OUTSIDE OF THE [place] IN LAST 30 DAYS: No - Related Data Allergies/Adverse Reactions: No Known Allergies Allergy (Verified 04/30/19 06:30) Past Medical History - Past Medical History Cardiac Medical History: Reports: Hx Hypercholesterolemia, Hx Hypertension Denies: Hx Heart Attack Pulmonary Medical History: Denies: Hx Asthma, Hx Bronchitis, Hx COPD, Hx Pneumonia Neurological Medical History: Denies: Hx Seizures Renal/ Medical History: Reports: Hx Renal Insufficiency. Denies: Hx Peritoneal Dialysis GI Medical History: Reports: Hx Gastroesophageal Reflux Disease Musculoskeltal Medical History: Reports Hx Arthritis - KOSTA ANKLES/KNEES, Reports Hx Gout Past Surgical History: Reports: Hx Orthopedic Surgery - L knee, Other - Left nephrectomy - Immunizations Immunizations up to date: Yes Hx Diphtheria, Pertussis, Tetanus Vaccination: Yes Physical Exam - Vital signs Vitals: Temp Pulse Resp BP Pulse Ox 98 F 68 18 142/98 H 98 03/07/20 17:49 03/07/20 17:49 03/07/20 17:49 03/07/20 17:49 03/07/20 17:49 Course - Vital Signs Vital signs: Temp Pulse Resp BP Pulse Ox 98 F 68 18 142/98 H 98 03/07/20 17:49 03/07/20 17:49 03/07/20 17:49 03/07/20 17:49 03/07/20 17:49 Doctor's Discharge - Discharge Referrals: [facility] [Primary Care [facility]] - Follow up as needed
--- NOTE | 2020-03-07 18:59 | RADIOLOGY REPORT (SQ) ---
EXAM DESCRIPTION: CT ABD/PELVIS NO ORAL OR IV IMAGES COMPLETED DATE/TIME: 03/07/2020 6:33 pm REASON FOR STUDY: Left abdominal and back pain COMPARISON: 05/11/2018 TECHNIQUE: CT scan of the abdomen and pelvis performed without intravenous or oral contrast. Images reviewed with lung, soft tissue, and bone windows. Reconstructed coronal and sagittal MPR images revi ewed. All images stored on PACS. All CT scanners at this facility use dose modulation, iterative reconstruction, and/or weight based d osing when appropriate to reduce radiation dose to as low as reasonably achievable (ALARA). [facility]: Dose Right [facility]: CareDose [facility]: Dose Right [facility]: Teradose 4D [facility]: Smart Cone[employer] Med RADIATION DOSE: CT Rad equipment meets quality standard of care and radiation dose reduction techniq ues were employed. CTDIvol: 11.7 mGy. DLP: 634 mGy-cm. LIMITATIONS: None. FINDINGS: LOWER CHEST: A few very small focal parenchymal opacities, very tiny nodules and minimal to very slight pleural nodularity bilateral lower lobes. NON-CONTRASTED LIVER, SPLEEN, ADRENALS: Small stable left hepatic lobe lesion. Stable left adrenal gland nodularity. Evaluation limited by lack of IV contrast. PANCREAS: No masses. No peripancreatic inflammatory changes. GALLBLADDER: No identified stones by CT criteria. No inflammatory changes to suggest cholecystitis. RIGHT KIDNEY AND URETER: No suspicious masses. Assessment limited by lack of IV contrast. No signif icant calcifications. No hydronephrosis or hydroureter. LEFT KIDNEY AND URETER: Interval nephrectomy since the previous examination. AORTA AND RETROPERITONEUM: No aneurysm. No retroperitoneal masses or adenopathy. BOWEL AND PERITONEAL CAVITY: In the left lower quadrant of the abdomen, axial image 44, series 3, a predominantly fatty appearing oval-shaped 5.8 cm x 2.5 cm lesion that abuts the anti mesenteric wall of the mid descending colon. Slight to very mild surrounding inflammatory changes. Considerations f or this finding includes epiploic appendagitis. No free fluid. APPENDIX: Normal. PELVIS, BLADDER, AND ABDOMINAL WALL: The prostate gland is stable in appearance. No free fluid. Th e urinary bladder is incompletely distended. BONES: The osseous structures are stable in appearance. OTHER: No other significant finding. IMPRESSION: 1. In the left lower quadrant of the abdomen, a predominantly fatty appearing oval-shap ed lesion that abuts the anti mesenteric wall of the mid descending colon with slight to very mild loco rrounding inflammatory changes. Considerations for this finding includes epiploic appendagitis. 2. Interval left nephrectomy since the previous examination dated 05/11/2018. 3. Additional stable findings as above. COMMENT: Quality ID # [id number]: Final reports with documentation of one or more dose reduction techniques (e.g., Automated exposure control, adjustment of the mA and/or kV according to patient size, use of iterative reconstruction technique) TECHNICAL DOCUMENTATION: JOB ID: [id number] 2010 [employer]- All Rights Reserved Reading location - IP/workstation name: [email or web address]
[2020-03-07 19:16] LABS: ABSOLUTE EOSINOPHILS # (AUTO) 0.1 10^3/uL (0.0-0.6); ABSOLUTE LYMPHOCYTES (AUTO) 1.7 10^3/uL (0.5-4.7); BASOPHILS % (AUTO) 0.5 % (0-2); EOSINOPHILS % (AUTO) 0.8 % (0-6); HEMATOCRIT 35.5 % (37.9-51.0); HEMOGLOBIN 11.5 g/dL (13.5-17.0); LYMPHOCYTES % (AUTO) 21.6 % (13-45); MEAN CORPUSCULAR HEMOGLOBIN 30.7 pg (27.0-33.4); MEAN CORPUSCULAR HGB CONC 32.5 g/dL (32.0-36.0); MEAN CORPUSCULAR VOLUME 94 fl (80-97); MONOCYTES % (AUTO) 13.1 % (3-13); PLATELET COUNT 298 10^3/uL (150-450); RED BLOOD COUNT 3.76 10^6/uL (4.35-5.55); RED CELL DISTRIBUTION WIDTH 14.6 % (11.5-14.0); TOTAL CELLS COUNTED % (AUTO) 100 %; WHITE BLOOD COUNT 7.9 10^3/uL (4.0-10.5)
[2020-03-07 19:23] LABS: APPEARANCE,URINE CLEAR; BILIRUBIN,URINE NEGATIVE (NEGATIVE); COLOR,URINE YELLOW; GLUCOSE, URINE NEGATIVE (NEGATIVE); KETONES,URINE NEGATIVE (NEGATIVE); LEUKOCYTE ESTERASE,URINE NEGATIVE (NEGATIVE); NITRITE,URINE NEGATIVE (NEGATIVE); PROTEIN,URINE 100 mg/dL (NEGATIVE); URINE SPECIFIC GRAVITY 1.026
[2020-03-07 19:36] LABS: ALBUMIN 3.6 g/dL (3.5-5.0); ALKALINE PHOSPHATASE 109 U/L (38-126); ANION GAP 10 (5-19); ASPARTATE AMINO TRANSFERASE 20 U/L (17-59); BILIRUBIN,DIRECT 0.1 mg/dL (0.0-0.4); BILIRUBIN,TOTAL 0.4 mg/dL (0.2-1.3); BLOOD UREA NITROGEN 21 mg/dL (7-20); CALCIUM 9.4 mg/dL (8.4-10.2); CARBON DIOXIDE 24 mmol/L (22-30); CHLORIDE 106 mmol/L (98-107); GLUCOSE 97 mg/dL (75-110); POTASSIUM 3.9 mmol/L (3.6-5.0); TOTAL PROTEIN 6.8 g/dL (6.3-8.2)
== END 2020-03-07 22:08 | disposition left against medical advice (07) ==
LOC: ER 17:33
DX: R10.32 Left lower quadrant pain (principal); M54.9 Dorsalgia, unspecified; M79.605 Pain in left leg; E78.00 Pure hypercholesterolemia, unspecified; I10 Essential (primary) hypertension
CPT/HCPCS: 36415; 74176; 80053; 81001; 85025; 99281

== ENCOUNTER 2020-03-08 10:09 | Emergency (ER) | payer OTHER, MEDICARE ==
--- NOTE | 2020-03-08 10:52 | ER Document Report ---
ED Medical Screen (RME) - General Chief Complaint: Abdominal Pain Stated Complaint: ABDOMINAL PAIN,FLANK PAIN Time Seen by Provider: 03/08/20 10:40 Primary Care Provider: ANDRA RODRIGES [Primary Care Provider] - Follow up as needed Mode of Arrival: Ambulatory Information source: Patient Notes: 64-year-old male patient presenting to the emergency department chief complaint of left lower quadrant abdominal pain that radiates into his left thigh. He states this pain started approximately 2 days ago. He denies any nausea, vomiting, diarrhea or fever. He reports mild constipation. He was seen in this emergency department yesterday and had blood work and a CT abdomen pelvis performed. He eloped prior to getting a room in the back. Mild tenderness in the left lower quadrant with palpation. Patient appears to be in mild distress. I have greeted and performed a rapid initial assessment of this patient. A comprehensive ED assessment and evaluation of the patient, analysis of test results and completion of the medical decision making process will be conducted by additional ED providers. I have specifically instructed the patient or family members with the patient to immediately return to any nursing staff should anything change in the patient's condition or with their chief complaint. TRAVEL OUTSIDE OF THE [place] IN LAST 30 DAYS: No - Related Data Allergies/Adverse Reactions: No Known Allergies Allergy (Verified 03/08/20 10:45) Past Medical History - Past Medical History Cardiac Medical History: Reports: Hx Hypercholesterolemia, Hx Hypertension Denies: Hx Heart Attack Pulmonary Medical History: Denies: Hx Asthma, Hx Bronchitis, Hx COPD, Hx Pneumonia Neurological Medical History: Denies: Hx Seizures Renal/ Medical History: Reports: Hx Renal Insufficiency. Denies: Hx Peritoneal Dialysis GI Medical History: Reports: Hx Gastroesophageal Reflux Disease Musculoskeltal Medical History: Reports Hx Arthritis - KOSTA ANKLES/KNEES, Reports Hx Gout Past Surgical History: Reports: Hx Orthopedic Surgery - L knee, Other - Left nephrectomy - Immunizations Immunizations up to date: Yes Hx Diphtheria, Pertussis, Tetanus Vaccination: Yes Physical Exam - Vital signs Vitals: Temp Pulse Resp BP Pulse Ox 97.7 F 79 20 135/88 H 100 03/08/20 10:17 03/08/20 10:17 03/08/20 10:17 03/08/20 10:17 03/08/20 10:17 Course - Vital Signs Vital signs: Temp Pulse Resp BP Pulse Ox 97.7 F 79 20 135/88 H 100 03/08/20 10:17 03/08/20 10:17 03/08/20 10:17 03/08/20 10:17 03/08/20 10:17 Doctor's Discharge - Discharge Referrals: [facility] [Primary Care [facility]] - Follow up as needed
[2020-03-08 11:15] LABS: ABSOLUTE BASOPHILS # (AUTO) 0.1 10^3/uL (0.0-0.2); ABSOLUTE LYMPHOCYTES (AUTO) 1.4 10^3/uL (0.5-4.7); ABSOLUTE MONOCYTES (AUTO) 0.7 10^3/uL (0.1-1.4); ABSOLUTE NEUT (AUTO) 5.9 10^3/uL (1.7-8.2); BASOPHILS % (AUTO) 0.7 % (0-2); EOSINOPHILS % (AUTO) 0.6 % (0-6); HEMATOCRIT 37.2 % (37.9-51.0); HEMOGLOBIN 12.1 g/dL (13.5-17.0); LYMPHOCYTES % (AUTO) 17.6 % (13-45); MEAN CORPUSCULAR HEMOGLOBIN 30.7 pg (27.0-33.4); MEAN CORPUSCULAR HGB CONC 32.6 g/dL (32.0-36.0); MEAN CORPUSCULAR VOLUME 94 fl (80-97); MONOCYTES % (AUTO) 8.9 % (3-13); PLATELET COUNT 285 10^3/uL (150-450); RED BLOOD COUNT 3.95 10^6/uL (4.35-5.55); RED CELL DISTRIBUTION WIDTH 14.7 % (11.5-14.0); SEGMENTED NEUTROPHILS % (AUTO) 72.2 % (42-78); TOTAL CELLS COUNTED % (AUTO) 100 %; WHITE BLOOD COUNT 8.1 10^3/uL (4.0-10.5)
[2020-03-08 11:19] LABS: APPEARANCE,URINE SLIGHTLY-CLOUDY; BILIRUBIN,URINE SMALL (NEGATIVE); COLOR,URINE AMBER; GLUCOSE, URINE NEGATIVE (NEGATIVE); KETONES,URINE NEGATIVE (NEGATIVE); LEUKOCYTE ESTERASE,URINE NEGATIVE (NEGATIVE); NITRITE,URINE NEGATIVE (NEGATIVE); PROTEIN,URINE 100 mg/dL (NEGATIVE); URINE SPECIFIC GRAVITY 1.031
[2020-03-08 11:34] LABS: ALBUMIN 3.7 g/dL (3.5-5.0); ALKALINE PHOSPHATASE 100 U/L (38-126); ANION GAP 10 (5-19); ASPARTATE AMINO TRANSFERASE 20 U/L (17-59); BILIRUBIN,DIRECT 0.1 mg/dL (0.0-0.4); BILIRUBIN,TOTAL 0.6 mg/dL (0.2-1.3); BLOOD UREA NITROGEN 17 mg/dL (7-20); CALCIUM 9.3 mg/dL (8.4-10.2); CARBON DIOXIDE 25 mmol/L (22-30); CHLORIDE 107 mmol/L (98-107); GLUCOSE 125 mg/dL (75-110); POTASSIUM 3.9 mmol/L (3.6-5.0)
--- NOTE | 2020-03-08 13:05 | ER Document Report ---
ED General - General Chief Complaint: Lower Abdominal Pain Stated Complaint: ABDOMINAL PAIN,FLANK PAIN Time Seen by Provider: 03/08/20 10:40 Primary Care Provider: [facility] [Primary Care Provider] - Follow up as needed Mode of Arrival: Ambulatory Information source: Patient TRAVEL OUTSIDE OF THE [place] IN LAST 30 DAYS: No - HPI Notes: Patient presents with left lower quadrant abdominal pain. He states this started approximately 2 to 3 days ago. He states it has been intermittent. There is seems to get worse when he stands up and better when he does not. He states the pain radiated down his left leg and up into his left shoulder. He states that he has had no vomiting. No diarrhea. That he has been able to eat and drink without problem. He states he was here last night had a CAT scan but he was uncomfortable in the waiting room so he went home and return today to find out the results of his test. Patient denies any fevers. No trauma. No cough cold or congestion. - Related Data Allergies/Adverse Reactions: No Known Allergies Allergy (Verified 03/08/20 10:45) Past Medical History - General Information source: Patient - Social History Smoking Status: Never Smoker Frequency of alcohol use: Occasional Family History: Hypertension, Malignancy - Past Medical History Cardiac Medical History: Reports: Hx Hypercholesterolemia, Hx Hypertension Denies: Hx Heart Attack Pulmonary Medical History: Denies: Hx Asthma, Hx Bronchitis, Hx COPD, Hx Pneumonia Neurological Medical History: Denies: Hx Seizures Renal/ Medical History: Reports: Hx Renal Insufficiency. Denies: Hx Peritoneal Dialysis GI Medical History: Reports: Hx Gastroesophageal Reflux Disease Musculoskeletal Medical History: Reports Hx Arthritis - KOSTA ANKLES/KNEES, Reports Hx Gout Past Surgical History: Reports: Hx Orthopedic Surgery - L knee, Other - Left nephrectomy - Immunizations Immunizations up to date: Yes Hx Diphtheria, Pertussis, Tetanus Vaccination: Yes Review of Systems - Review of Systems Constitutional: denies: Chills, Fever Cardiovascular: denies: Chest pain, Palpitations Respiratory: denies: Cough, Short of breath -: Yes All other systems reviewed and negative Physical Exam - Vital signs Vitals: Temp Pulse Resp BP Pulse Ox 97.7 F 79 20 135/88 H 100 03/08/20 10:17 03/08/20 10:17 03/08/20 10:17 03/08/20 10:17 03/08/20 10:17 Interpretation: Normal - General General appearance: Appears well, Alert - HEENT Head: Normocephalic, Atraumatic Eyes: Normal Pupils: PERRL - Respiratory Respiratory status: No respiratory distress Chest status: Nontender Breath sounds: Normal Chest palpation: Normal - Cardiovascular Rhythm: Regular Heart sounds: Normal auscultation Murmur: No - Abdominal Inspection: Normal Distension: No distension Bowel sounds: Normal Tenderness: Nontender Organomegaly: No organomegaly - Back Back: Normal, Nontender - Extremities General upper extremity: Normal inspection, Nontender, Normal color, Normal ROM, Normal temperature General lower extremity: Normal inspection, Nontender, Normal color, Normal ROM, Normal temperature, Normal weight bearing. No: Suyapa's sign - Neurological Neuro grossly intact: Yes Cognition: Normal Orientation: AAOx4 Wilver Coma Scale Eye Opening: Spontaneous Hosmer Coma Scale Verbal: Oriented Wilver Coma Scale Motor: Obeys Commands Wilver Coma Scale Total: 15 Speech: Normal Motor strength normal: LUE, RUE, LLE, RLE Sensory: Normal - Psychological Associated symptoms: Normal affect, Normal mood - Skin Skin Temperature: Warm Skin Moisture: Dry Skin Color: Normal Course - Re-evaluation Re-evalutation: 03/08/20 13:06 Patient presents with left lower quadrant abdominal pain. He states it was severe yesterday and currently feels better. He states it was worse when he walked. I got him up and ambulated today and he states the pain is now gone. I reviewed the CT scan with the surgeon and it is felt that patient had epiploic appendagitis and that it would resolve with anti-inflammatories. Patient states is been able to eat and drink appropriately. He has no other significant laboratory abnormalities. - Vital Signs Vital signs: Temp Pulse Resp BP Pulse Ox 97.7 F 79 20 135/88 H 100 03/08/20 10:17 03/08/20 10:17 03/08/20 10:17 03/08/20 10:17 03/08/20 10:17 - Laboratory Result Diagrams: 03/08/20 11:05 03/08/20 11:05 Laboratory results interpreted by me: 03/08/20 03/08/20 03/08/20 11:00 11:05 11:05 RBC 3.95 L Hgb 12.1 L Hct 37.2 L RDW 14.7 H Creatinine 1.72 H Est GFR ( Amer) 49 L Est GFR (MDRD) Non-Af 40 L Glucose 125 H Urine Protein 100 H Urine Bilirubin SMALL H Urine Urobilinogen 4.0 H - Diagnostic Test Radiology reviewed: Image reviewed, Reports reviewed Discharge - Discharge Clinical Impression: Abdominal pain Qualifiers: Abdominal location: left lower quadrant Qualified Code(s): R10.32 - Left lower quadrant pain Condition: Stable Disposition: HOME, SELF-CARE Instructions: Abdominal Pain ([facility]) Prescriptions: Tramadol HCl [Ultram] 50 mg PO Q6 3 Days #12 tablet Referrals: [facility] [Primary Care Provider] - Follow up in 3-5 days
[2020-03-08 14:03] VITALS: BP 157/95
== END 2020-03-08 13:31 | disposition home or self-care (01) ==
LOC: ER 10:09
DX: R10.32 Left lower quadrant pain (principal); I10 Essential (primary) hypertension
CPT/HCPCS: 36415; 80053; 81001; 83690; 85025; 99283